=== PATIENT | male | born 1975 | race Caucasian/White ===

== ENCOUNTER 2017-10-12 08:52 | Observation (INO) | payer SELFPAY ==
[2017-10-12 09:56] LABS: Absolute Monocytes 0.4 K/uL (0.1-1.3); Absolute Neutrophil 5.8 K/uL (1.8-8.0); Basophils % 0.6 % (0-1.3); Hematocrit 47.2 % (39.6-49.0); Lymphocytes % 13.2 % (15.3-44.8); MCH 32.5 pg (27.0-35.0); MPV 10.8 fL (7.6-11.3); Monocytes % 5.2 % (3.3-12.3); RBC Red Blood Cell Count 4.81 M/uL (4.33-5.43)
[2017-10-12 09:59] LABS: Protime INR 0.92
[2017-10-12 10:13] LABS: Albumin 3.6 g/dL (3.4-5.0); Bilirubin Direct 0.2 mg/dL (0-0.2); Bilirubin Total 0.6 mg/dL (0.2-1.0); CKMB Creatine Kinase MB 1.2 ng/mL (0.3-3.6); Magnesium 1.8 mg/dL (1.8-2.4); Potassium 3.5 mmol/L (3.5-5.1); Protein, Total 7.1 g/dL (6.4-8.2)
--- NOTE | 2017-10-12 10:23 | RAD REPORT ---
EXAM DESCRIPTION: Nacho Single View10/12/2017 10:12 am CLINICAL HISTORY: Chest pain COMPARISON: 2014 FINDINGS: The lungs appear clear of acute infiltrate. The heart is normal size IMPRESSION: No acute abnormalities displayed
[2017-10-12] MEDS ORDERED: ASPIRIN EC 325 MG TABLET PO ONE (11:12)
[2017-10-12] MEDS ORDERED: ONDANSETRON 4 MG/2 ML VIAL ONE (11:12)
[2017-10-12] MEDS ORDERED: MORPHINE 4 MG/ML SYR ONE (11:12)
[2017-10-12] MEDS ORDERED: ACETAMINOPHEN 500 MG TAB PO PRN (11:36)
[2017-10-12] MEDS ORDERED: ONDANSETRON 4 MG/2 ML VIAL IV PRN (11:36)
--- NOTE | 2017-10-12 11:40 | EDPHYS ---
Physician Documentation [facility] Name: Pola Hunter Age: 42 yrs Sex: Male : 1975 Arrival Date: 10/12/2017 Time: 08:56 Bed 13 Private MD: None, None ED Physician Rambo Diaz HPI: 10/12 09:25 This 42 yrs old Male presents to ER via Ambulatory with complaints of Chest jmm Pain. 09:25 The patient or guardian reports chest pain that is located primarily in the substernal m area. Onset: gradually, last night. The pain does not radiate. Associated signs and symptoms: Pertinent positives: cough, nausea. The chest pain is described as aching, sharp. Duration: The patient or guardian reports multiple episodes, that wax and wane. Modifying factors: The symptoms are alleviated by nothing. the symptoms are aggravated by cough. This is a 42 year old male with a history of HTN presents to the ED with left sided chest pain beginning last night. The pain is described as an ache which becomes sharp when he cough. The patient attributes his cough to taking lisinopril for his blood pressure. The patient admits to occasional ETOH use and daily 1 PPD smoking. Patient denies radiation of pain. . Historical: - Allergies: 09:24 NKA; iw - Home Meds: 09:24 lisinopril-hydrochlorothiazide 10-12.5 mg oral tab 1 tab once daily [Active]; iw - PMHx: 09:24 Hypertension; iw - PSHx: 09:24 Appendectomy; iw - Immunization history:: Adult Immunizations not up to date. - Social history:: Smoking status: Patient uses tobacco products, smokes one pack cigarettes per day. - Ebola Screening: : Patient negative for fever greater than or equal to 101.5 degrees Fahrenheit, and additional compatible Ebola Virus Disease symptoms Patient denies exposure to infectious person Patient denies travel to an Ebola-affected area in the 21 days before illness onset No symptoms or risks identified at this time. ROS: 09:25 Constitutional: Negative for body aches, chills, fatigue. jmm 09:25 Cardiovascular: Positive for chest pain. 09:25 Respiratory: Positive for shortness of breath. 09:25 Abdomen/GI: Positive for nausea, Negative for vomiting, diarrhea. 09:25 Back: Negative for radiated pain. 09:25 MS/extremity: Negative for pain. 09:25 Neuro: Negative for weakness. 09:25 All other systems are negative. Exam: 09:25 Head/Face: atraumatic. [facility] 09:25 Constitutional: The patient appears in no acute distress, alert, awake. 09:25 Chest/axilla: Inspection: normal, Palpation: is normal, Axilla: 09:25 Cardiovascular: Rate: normal, Rhythm: regular. 09:25 Respiratory: the patient does not display signs of respiratory distress, Respirations: normal, Breath sounds: are clear throughout. 09:25 Abdomen/GI: Inspection: obese Bowel sounds: normal, Palpation: abdomen is soft and non-tender, in all quadrants. 09:25 Back: ROM is normal. 09:25 Musculoskeletal/extremity: ROM: intact in all extremities. 09:25 Skin: Appearance: Color: normal in color. 09:25 Neuro: Orientation: is normal, Mentation: is normal, Memory: is normal. 09:25 Psych: Behavior/mood is pleasant, cooperative. Vital Signs: 09:24 BP 168 / 109; Pulse 97; Resp 18 S; Pulse Ox 98% on R/A; Weight 117.93 kg; Height 5 ft. iw 11 in. (180.34 cm); Pain 8/10; 09:30 Temp 98.6(O); jl7 09:34 BP 152 / 105; Pulse 108; Resp 14; Pulse Ox 99% ; jl7 10:30 BP 153 / 96; Pulse 90; Resp 14; Pulse Ox 97% ; jl7 10:52 BP 163 / 97; Pulse 64; Resp 18; Pulse Ox 97% ; jl7 12:29 BP 156 / 113; Pulse 85; Resp 16; Pulse Ox 97% ; jl7 09:24 Body Mass Index 36.26 (117.93 kg, 180.34 cm) iw MDM: 09:29 Patient medically screened. dorina 11:24 The patient was given aspirin in the Emergency Department. Data reviewed: vital signs, [facility] nurses notes, lab test result(s), EKG, radiologic studies, plain films. 11:36 Physician consultation: Sakina Murillo MD. nic 11:37 ED course: Patient will be admitted for ACS rule out. I discussed this with the patient rogers whom agrees with the plan of care. 07/03 09:38 Order name: Basic Metabolic Panel; Complete Time: 10:25 [facility] 10/12 09:38 Order name: CBC with Diff; Complete Time: 10:05 [facility] 10/12 09:38 Order name: Ckmb; Complete Time: 10:25 [facility] 10/12 09:38 Order name: CPK; Complete Time: 10:25 [facility] 10/12 09:38 Order name: LFT's; Complete Time: 10:25 [facility] 10/12 09:38 Order name: Magnesium; Complete Time: 10:25 [facility] 10/12 09:38 Order name: NT PRO-BNP; Complete Time: 10:25 [facility] 10/12 09:38 Order name: PT-INR; Complete Time: 10:05 [facility] 10/12 09:38 Order name: Ptt, Activated; Complete Time: 10:05 [facility] 10/12 09:38 Order name: Troponin (emerg Dept Use Only); Complete Time: 10:25 [facility] 10/12 09:38 Order name: XRAY Chest (1 view); Complete Time: 10:25 [facility] 10/12 10:05 Order name: D-Dimer; Complete Time: 10:50 [facility] 10/12 11:39 Order name: Hemoglobin A1c [facility] 10/12 11:39 Order name: Lipid Profile [facility] 10/12 09:38 Order name: EKG; Complete Time: 09:39 [facility] 10/12 09:38 Order name: Cardiac monitoring; Complete Time: 09:42 [facility] 10/12 09:38 Order name: EKG - Nurse/Tech; Complete Time: 09:42 [facility] 10/12 09:38 Order name: IV Saline Lock; Complete Time: 09:42 [facility] 10/12 09:38 Order name: Labs collected and sent; Complete Time: 09:42 [facility] 10/12 09:38 Order name: O2 Per Protocol; Complete Time: 09:42 [facility] 10/12 09:38 Order name: O2 Sat Monitoring; Complete Time: 09:42 [facility] 10/12 10:04 Order name: EKG - Nurse/Tech; Complete Time: 10:13 [facility] 10/12 10:07 Order name: EKG; Complete Time: 10:07 [facility] 10/12 11:38 Order name: CONS Physician Consult [facility] 10/12 11:38 Order name: Heart Healthy [facility] 10/12 11:38 Order name: Echo with Doppler EDMS Administered Medications: 11:11 Drug: Aspirin 325 mg Route: PO; jl7 12:40 Follow up: Response: No adverse reaction jl7 11:12 Drug: Zofran 4 mg Route: IVP; Site: right antecubital; jl7 11:45 Follow up: Response: No adverse reaction jl7 11:14 Drug: morphine 4 mg Route: IVP; Site: right antecubital; jl7 11:45 Follow up: Response: No adverse reaction; Pain is decreased jl7 Disposition: 15:01 Co-signature as Attending Physician, Rambo Diaz MD I agree with the assessment and [facility] plan of care. Disposition: 10/12/17 11:39 Hospitalization ordered by Sakina Murillo for Observation. Preliminary diagnosis is Other chest pain. - Bed requested for Telemetry/MedSurg (observation). - Status is Observation. jl7 - Condition is Stable. - Problem is new. - Symptoms are unchanged. UTI on Admission? No Signatures: Dispatcher [employer] EDTN Rambo Diaz MD MD cha Mickail, Joel, PA PA Vani Macdonald, RN RN Alyssa Worrell Jahala RN RN jl7 Corrections: (The following items were deleted from the chart) 12:13 11:39 Hospitalization Ordered by Sakina Murillo MD for Observation. Preliminary ag diagnosis is Other chest pain. Bed requested for Telemetry/MedSurg (observation). Status is Observation. Condition is Stable. Problem is new. Symptoms are unchanged. UTI on Admission? No. [facility] 12:40 12:13 10/12/2017 11:39 Hospitalization Ordered by Sakina Murillo MD for Observation. jl7 Preliminary diagnosis is Other chest pain. Bed requested for Telemetry/MedSurg (observation). Status is Observation. Condition is Stable. Problem is new. Symptoms are unchanged. UTI on Admission? No. ag
--- NOTE | 2017-10-12 11:40 | ER ---
Nurse's Notes [facility] Name: Pola Hunter Age: 42 yrs Sex: Male : 1975 Arrival Date: 10/12/2017 Time: 08:56 Bed 13 Private MD: None, None Diagnosis: Other chest pain Presentation: 10/12 09:19 Presenting complaint: Patient states: c/o left sided chest pain since last night, pain iw radiates across chest, described as burning pain, was constant last night, now intermittent, also feels like BP is high, feels flush and having "hot flashes", takes lisinopril/hctz, but has been out of his losartan for 2 weeks. Transition of care: patient was not received from another setting of care. Onset of symptoms was October 11, 2017. Risk Assessment: Do you want to hurt yourself or someone else? Patient reports no desire to harm self or others. Initial Sepsis Screen: Does the patient meet any 2 criteria? No. Patient's initial sepsis screen is negative. Does the patient have a suspected source of infection? No. Patient's initial sepsis screen is negative. Care prior to arrival: None. 09:19 Method Of Arrival: Ambulatory iw 09:19 Acuity: STEVE 3 iw Historical: - Allergies: 09:24 NKA; iw - Home Meds: 09:24 lisinopril-hydrochlorothiazide 10-12.5 mg oral tab 1 tab once daily [Active]; iw - PMHx: 09:24 Hypertension; iw - PSHx: 09:24 Appendectomy; iw - Immunization history:: Adult Immunizations not up to date. - Social history:: Smoking status: Patient uses tobacco products, smokes one pack cigarettes per day. - Ebola Screening: : Patient negative for fever greater than or equal to 101.5 degrees Fahrenheit, and additional compatible Ebola Virus Disease symptoms Patient denies exposure to infectious person Patient denies travel to an Ebola-affected area in the 21 days before illness onset No symptoms or risks identified at this time. Screenin:34 Abuse screen: Denies threats or abuse. Denies injuries from another. Nutritional jl7 screening: No deficits noted. Tuberculosis screening: No symptoms or risk factors identified. Fall Risk IV access (20 points). Total Calderon Fall Scale indicates No Risk (0-24 pts). Assessment: 09:28 Also complains of shortness of breath. General: Appears in no apparent distress. jl7 uncomfortable, Behavior is cooperative, appropriate for age, anxious. Pain: Complains of pain in anterior aspect of left upper chest Pain radiates to anterior aspect of right upper chest Pain currently is 8 out of 10 on a pain scale. Quality of pain is described as pressure, sharp, piercing, Pain began 1 day ago. Is intermittent. Neuro: Level of Consciousness is awake, alert, obeys commands, Oriented to person, place, time, situation. Cardiovascular: Heart tones S1 S2 present Patient's skin is warm and dry. Respiratory: Reports shortness of breath at rest Airway is patent Respiratory effort is even, unlabored, Respiratory pattern is regular, symmetrical, Breath sounds are clear bilaterally. GI: No signs and/or symptoms were reported involving the gastrointestinal system. Abdomen is round non-distended, Bowel sounds present X 4 quads. Patient currently denies diarrhea, nausea, pain, vomiting. : No signs and/or symptoms were reported regarding the genitourinary system. EENT: No signs and/or symptoms were reported regarding the EENT system. Derm: Skin is pink, warm \\T\\ dry. Musculoskeletal: No signs and/or symptoms reported regarding the musculoskeletal system. 10:30 Reassessment: No changes from previously documented assessment. Patient and/or family jl7 updated on plan of care and expected duration. Pain level reassessed. Patient is alert, oriented x 3, equal unlabored respirations, skin warm/dry/pink. 11:30 Reassessment: Patient and/or family updated on plan of care and expected duration. Pain jl7 level reassessed. Patient is alert, oriented x 3, equal unlabored respirations, skin warm/dry/pink. 12:29 Reassessment: Patient is alert, oriented x 3, equal unlabored respirations, skin jl7 warm/dry/pink. Provider notified of BP, no new orders received. Patient denies pain at this time. Vital Signs: 09:24 BP 168 / 109; Pulse 97; Resp 18 S; Pulse Ox 98% on R/A; Weight 117.93 kg; Height 5 ft. iw 11 in. (180.34 cm); Pain 8/10; 09:30 Temp 98.6(O); jl7 09:34 BP 152 / 105; Pulse 108; Resp 14; Pulse Ox 99% ; jl7 10:30 BP 153 / 96; Pulse 90; Resp 14; Pulse Ox 97% ; jl7 10:52 BP 163 / 97; Pulse 64; Resp 18; Pulse Ox 97% ; jl7 12:29 BP 156 / 113; Pulse 85; Resp 16; Pulse Ox 97% ; jl7 09:24 Body Mass Index 36.26 (117.93 kg, 180.34 cm) iw ED Course: 08:56 Patient arrived in ED. mr 08:56 None, None is Private Physician. mr 09:14 Nannette Lu, JOSEPH is Primary Nurse. jl7 09:20 Darci Cardozo PA is PHCP. jmm 09:20 Rambo Diaz MD is Attending Physician. jmm 09:23 Triage completed. iw 09:24 Arm band placed on. iw 09:28 Missed attempt(s): 20 gauge in left antecubital area. Bleeding controlled, band aid jl7 applied, catheter tip intact. 09:31 Initial lab(s) drawn, by me, sent to lab. Inserted saline lock: 20 gauge in right jl7 antecubital area, using aseptic technique. Blood collected. Patient maintains SpO2 saturation greater than 95% on room air. 09:34 Patient has correct armband on for positive identification. Placed in gown. Bed in low jl7 position. Call light in reach. Side rails up X 1. surveillance system monitor on. Pulse ox on. NIBP on. 10:01 X-ray completed. Portable x-ray completed in exam room. Patient tolerated procedure ml well. 10:01 XRAY Chest (1 view) In Process Unspecified. EDMS 11:38 Mikal Murillo MD is Hospitalizing Provider. jmm 11:38 Sakina Murillo MD is Hospitalizing Provider. jmm 12:29 No provider procedures requiring assistance completed. Patient admitted, IV remains in jl7 place. intact, No redness/swelling at site. Administered Medications: 11:11 Drug: Aspirin 325 mg Route: PO; jl7 12:40 Follow up: Response: No adverse reaction jl7 11:12 Drug: Zofran 4 mg Route: IVP; Site: right antecubital; jl7 11:45 Follow up: Response: No adverse reaction jl7 11:14 Drug: morphine 4 mg Route: IVP; Site: right antecubital; jl7 11:45 Follow up: Response: No adverse reaction; Pain is decreased jl7 Outcome: 11:39 Decision to Hospitalize by Provider. rogers 12:38 Admitted to Tele accompanied by tech, via wheelchair, room 427, with chart, Report jl7 called to JOSEPH Ryan 12:38 Condition: stable 12:38 Discharge instructions given to patient, Instructed on the need for admit, Demonstrated understanding of instructions. 12:40 Patient left the ED. jl7 Signatures: Dispatcher [employer] EDMS Darci Cardozo PA PA jmm Rivera, Maria mr Vani Lyle, RN Monse Feldman Jahala, RN RN jl7 Corrections: (The following items were deleted from the chart) 09:34 09:28 BP 152 / 105; Pulse 108bpm; Resp 14bpm; Pulse Ox 99%; jl7 jl7
[2017-10-12 12:47] VITALS: O2SAT 97
[2017-10-12 13:02] VITALS: BP 151/104; TEMP 97.5
[2017-10-12 13:24] VITALS: BMI 35.8
[2017-10-12] MEDS ORDERED: POTASSIUM CL SA 10 MEQ TAB PO ONE (14:00)
[2017-10-12] MEDS ORDERED: MAGNESIUM SULFATE 1 gm IVPB 1 GM/100 ML BAG IV ONE (14:00)
--- NOTE | 2017-10-12 15:08 | ECHO ---
HEIGHT: 5 ft 11 in WEIGHT: 257 lb 0 oz DATE OF STUDY: 10/12/[address]: Sakina Murillo MD 2-DIMENSIONAL: YES M.MODE: YES DOPPLER: YES COLOR FLOW: YES TDS: YES PORTABLE: NO DEFINITY: NO BUBBLE STUDY: NO DIAGNOSIS: CHEST PAIN WITH ELEVATED BNP, RULE OUT ACS CARDIAC HISTORY: CATHERIZATION: NO SURGERY: NO PROSTHETIC VALVE: NO PACEMAKER: NO MEASUREMENTS (cm) DIASTOLIC (NORMALS) SYSTOLIC (NORMALS) IVSd 0.9 (0.6-1.2) LA Diam 3.1 (1.9-4.0) LVEF 67% LVIDd 3.5 (3.5-5.7) LVIDs 2.2 (2.0-3.5) %FS 37% LVPWd 1.0 (0.6-1.2) Ao Diam 3.3 (2.0-3.7) 2 DIMENSIONAL ASSESSMENT: RIGHT ATRIUM: NORMAL LEFT ATRIUM: NORMAL RIGHT VENTRICLE: NORMAL LEFT VENTRICLE: NORMAL TRICUSPID VALVE: NORMAL MITRAL VALVE: NORMAL PULMONIC VALVE: NORMAL AORTIC VALVE: NORMAL PERICARDIAL EFFUSION: NONE AORTIC ROOT: NORMAL LEFT VENTRICULAR WALL MOTION: NORMAL DOPPLER/COLOR FLOW: NORMAL COMMENTS: TECHNICALLY DIFFICULT STUDY. GROSSLY NORMAL LEFT VENTRICULAR EJECTION FRACTION AND SIZE. NORMAL DOPPLER. NO EFFUSION. TECHNOLOGIST: Anupam MARROQUIN
--- NOTE | 2017-10-12 15:12 | P.HP ---
Certification for Inpatient Patient admitted to: Observation With expected LOS: <2 Midnights Patient will require the following post-hospital care: None Practitioner: I am a practitioner with admitting privileges, knowledge of patient current condition, hospital course, and medical plan of care. Services: Services provided to patient in accordance with Admission requirements found in Title 42 Section 412.3 of the Code of Federal Regulations Patient History Date of Service: 10/12/17 Primary Care Provider: Hans Reason for admission: Chest pain History of Present Illness: 42 year old male with a history of HTN presents to the ED with left sided chest pain beginning last night. The pain is described as an dull ache which becomes sharp when he cough. Pain is 8/10 in nature at its worse. Nothing helps the pain. Denies having any SOB, Nausea, Vomiting, or any other symptoms at this time. The patient admits to occasional ETOH use and daily 1 PPD smoking. + Family history as well. No other complains to offer. Has been seeing doc in [place]. Allergies meperidine HCl [From Demerol] Allergy (Mild, Verified 02/24/12 08:38) Hives/Rash No Known Drug Allergies Allergy (Unverified 07/24/14 07:35) Unknown No Known Allergies Allergy (Uncoded 10/12/17 12:44) Unknown Home Medications: Lisinopril/Hydrochlorothiazide [Lisinopril-Hctz 10-12.5 mg Tab] 1 each PO BEDTIME 10/12/17 - Past Medical/Surgical History Has patient received pneumonia vaccine in the past: No Diabetic: No -: HTN -: Appendectomy - Family History Father History Unknown: Yes -: Other (see notes) Notes: alzheimers Mother -: Stroke - Social History Smoking Status: Current every day smoker Alcohol use: Yes CD- Drugs: No Caffeine use: Yes Place of Residence: Home Review of Systems General: As per HPI Physical Examination - Vital Signs Temperature: 97.5 F Blood Pressure: 151/104 Pulse: 92 Respirations: 18 Pulse Ox (%): 97 - Physical Exam General: Alert, In no apparent distress HEENT: Atraumatic, PERRLA, Mucous membr. moist/pink, EOMI, Sclerae nonicteric Neck: Supple, 2+ carotid pulse no bruit, No LAD, Without JVD or thyroid abnormality Respiratory: Clear to auscultation bilaterally, Normal air movement Cardiovascular: Regular rate/rhythm, Normal S1 S2 Gastrointestinal: Normal bowel sounds, No tenderness Musculoskeletal: No tenderness Integumentary: No rashes Neurological: Normal gait, Normal speech, Normal strength at 5/5 x4 extr, Normal tone, Normal affect Lymphatics: No axilla or inguinal lymphadenopathy - Studies Laboratory Data (last 24 hrs) 10/12/17 09:30: PT 10.9, INR 0.92, APTT 28.7 10/12/17 09:30: WBC 7.2, Hgb 15.6, Hct 47.2, Plt Count 163 10/12/17 09:30: Sodium 141, Potassium 3.5, BUN 9, Creatinine 1.20, Glucose 128 H , Magnesium 1.8, Total Bilirubin 0.6, AST 49 H, ALT 92 H, Alkaline Phosphatase 72 Assessment and Plan - Problems (Diagnosis) (1) Chest pain Current Visit: Yes Status: Acute Plan: atypical Chest pain. Troponin x 1 negative and EKG with no acute changes -Repeat Troponin x 2 -ECHO ordered -Cardiology consulted. Awaiting reccs -ACS protocol: ASA, Statin, BB Qualifiers: Chest pain type: unspecified Qualified Code(s): R07.9 - Chest pain, unspecified (2) HTN (hypertension) Current Visit: Yes Status: Chronic Plan: BP stable for now -Hold Lisinopril/HCTZ due to Cough Qualifiers: Hypertension type: essential hypertension Qualified Code(s): I10 - Essential (primary) hypertension (3) Tobacco abuse Current Visit: Yes Status: Chronic Plan: Smokes 1 pack a day -Counseled and educated Discharge Plan: Home Plan to discharge in: 24 Hours - Advance Directives Does patient have a Living Will: No Does patient have a Durable POA for Healthcare: No - Code Status/Comfort Care Code Status Assessed: Yes Critical Care: No
--- NOTE | 2017-10-12 15:35 | EKG ---
Test Date: 2017-10-12 Test Time: 10:07:29 [employer] Former Supervisor: BLANCA MEASUREMENT RESULTS: Intervals: Rate: 88 AZ: 172 QRSD: 114 QT: 376 QTc: 454 Marine: P: 50 AZ: 172 QRS: 69 T: 52 INTERPRETIVE STATEMENTS: Normal sinus rhythm with sinus arrhythmia Incomplete right bundle branch block Borderline ECG Compared to ECG 10/12/2017 09:17:40 Sinus tachycardia no longer present Electronically Signed On 10-12-17 15:33:39 CDT by Ghassan Gomes
--- NOTE | 2017-10-12 15:35 | EKG ---
Test Date: 2017-10-12 Test Time: 09:17:40 [employer] Ii Assembler: BLANCA MEASUREMENT RESULTS: Intervals: Rate: 103 MN: 174 QRSD: 114 QT: 370 QTc: 484 Colbert: P: 50 MN: 174 QRS: 61 T: 48 INTERPRETIVE STATEMENTS: Sinus tachycardia Incomplete right bundle branch block Borderline ECG Compared to ECG 09/06/2014 09:54:25 Sinus rhythm no longer present Electronically Signed On 10-12-17 15:33:48 CDT by Ghassan Gomes
[2017-10-12] MEDS ORDERED: ASPIRIN EC 81 MG TAB PO SCH (16:00)
[2017-10-12] MEDS ORDERED: ATORVASTATIN 20 MG TAB PO SCH (21:00)
[2017-10-13] MEDS ORDERED: METOPROLOL XL 25 MG TAB PO SCH (06:00)
[2017-10-13] MEDS ORDERED: PANTOPRAZOLE 40MG TABLET PO SCH (06:30)
[2017-10-13] MEDS ORDERED: ASPIRIN EC 81 MG TAB PO SCH (09:00)
[2017-10-13] MEDS ORDERED: ENOXAPARIN 40 MG/0.4 ML SQ SCH (09:00)
--- NOTE | 2017-10-13 14:28 | CON ---
Date of Consultation: 10/12/2017 Reason For Consultation: Chest pain. History Of Present Illness: Mr. Hunter is a 42-year-old white male, who has no significant past cardia c history. He has a history of hypertension, tobacco use and a positive family history of cerebrovas cular disease. He does not really see any physician. He is supposed to be on lisinopril. He used t o see Dr. Harry at one point. He basically came in with sharp, stabbing chest pain over the left sandra e with radiating to the left arm. No nausea, vomiting, diaphoresis, PND, orthopnea, pedal edema, pal pitations, or syncope. He himself believes that this may be anxiety related or musculoskeletal. By the time he was seen, he had a normal EKG, normal troponin, normal chest x-ray, normal echocardiograp hy. His laboratory evaluation was normal. Past Medical History: Includes hypertension. Social History: Positive for tobacco abuse. Family History: Positive for history of CVA and Alzheimer's. Medications: At home include lisinopril. Allergies: DEMEROL. Physical Examination: Vital Signs: Stable, afebrile. HEENT: Negative. Neck: Supple without any bruit, lymphadenopathy, JVD, or thyromegaly. Chest: Clear. Cardiac: Revealed a regular rhythm and rate without murmurs, gallops, or rubs. Abdomen: Benign. Extremities: Revealed no clubbing, cyanosis, or edema. Diagnostic Data: Negative. Impression And Plan: 1.Atypical chest pain, more likely musculoskeletal or possibly gastroesophageal reflux in nature. 2.Tobacco abuse. 3.Family history of cerebrovascular disease. The patient has ruled out his echocardiogram is normal . His enzymes are normal. I am comfortable within going home. I will make arrangements for him to have an outpatient stress test. ELVIN/SHAKIR Voice ID: [id number] Report ID: [id number]
== END 2017-10-12 17:46 | disposition home or self-care (01) ==
LOC: ER 08:52 → ERHOLD 11:36 → 4TH 12:33
PROVIDERS: ADMIT Family Medicine; ATTEND Family Medicine
DX: R07.89 Other chest pain (principal); I45.10 Unspecified right bundle-branch block; R00.1 Bradycardia, unspecified; I10 Essential (primary) hypertension; Z82.49 Family history of ischemic heart disease and other diseases of the circulatory system; F17.210 Nicotine dependence, cigarettes, uncomplicated; Z88.5 Allergy status to narcotic agent
CPT/HCPCS: 36415; 71045; 80048; 80061; 80076; 82550; 82553; 83036; 83735; 83880; 84484; 85025; 85379; 85610; 85730; 93005; 93306; 96374; 96375; 99285; G0378; J2405; J3475

== ENCOUNTER 2021-04-01 16:41 | Emergency (ER) | payer SELFPAY ==
[2021-04-01 17:37] LABS: Absolute Lymphocytes (CBC) 0.4 K/uL (0.7-4.9); Basophils % 0.6 % (0-1.3); Hematocrit 46.5 % (39.6-49.0); Lymphocytes % 4.6 % (15.3-44.8); MPV 10.3 fL (7.6-11.3); RBC Red Blood Cell Count 5.03 M/uL (4.33-5.43)
[2021-04-01 17:41] LABS: Protime INR 0.99
--- NOTE | 2021-04-01 17:56 | RAD REPORT ---
EXAM DESCRIPTION: RAD - Chest Single View - 04/01/2021 5:38 pm CLINICAL HISTORY: CHEST PAIN COMPARISON: Chest Single View dated 10/12/2017; CHEST PA AND LAT 2 VIEW dated 09/06/2014; CHEST SINGLE VIEW dated 07/16/2014; CHEST SINGLE VIEW dated 07/08/2008Chest Single View dated 10/12/2017; CHEST PA AND LAT 2 VIEW dated 09/06/2014; CHEST SINGLE VIEW dated 07/16/2014; CHEST SINGLE VIEW dated 07/08/2008 FINDINGS: Lines: None. Lungs: No evidence of edema or pneumonia. Pleural: No significant pleural effusions or pneumothorax. Cardiac: Cardiomegaly. Bones: No acute fractures. Other: IMPRESSION: No acute cardiopulmonary disease.
[2021-04-01 18:00] LABS: ALT/SGPT 52 U/L (12-78); AST/SGOT 21 U/L (15-37); Albumin 3.6 g/dL (3.4-5.0); Alkaline Phosphatase 80 U/L (45-117); BUN Blood Urea Nitrogen 12 mg/dL (7-18); Bicarbonate 24 mmol/L (21-32); Bilirubin Direct 0.1 mg/dL (0-0.2); Bilirubin Total 0.5 mg/dL (0.2-1.0); Glucose Level 108 mg/dL (74-106); Magnesium 1.7 mg/dL (1.8-2.4); NT PRO-BNP 96 pg/mL (<125); Potassium 3.6 mmol/L (3.5-5.1); Protein, Total 7.3 g/dL (6.4-8.2); Sodium Level 135 mmol/L (136-145); Troponin (Emerg Dept Use Only) < 0.02 ng/mL (0.0-0.045)
[2021-04-01] MEDS ORDERED: NA CHLORIDE 0.9% 1,000 ML ONE (18:08)
--- NOTE | 2021-04-01 19:29 | RAD REPORT ---
EXAM DESCRIPTION: CT - Chest For Pe Angio - 04/01/2021 7:07 pm CLINICAL HISTORY: CHEST PAIN COMPARISON: No comparisons FINDINGS: Chest Wall: No suspicious thyroid nodules or pathologic lymphadenopathy. Lungs: No acute abnormality. Pleura: No significant effusions or pneumothorax. Mediastinum/brandyn: No pathologic lymphadenopathy. Pulmonary arteries/Aorta: No central pulmonary embolus identified. The segmental and subsegmental pul monary arteries cannot be evaluated due to motion. No aortic aneurysm. Heart: No significant pericardial effusion. Normal heart size. Upper abdomen: Too small to characterize low-density lesion left hepatic lobe. Bones: No acute abnormality. All CT scans are performed using dose optimization technique as appropriate and may include automated exposure control or mA/KV adjustment according to patient size. IMPRESSION: No central pulmonary embolus. Evaluation of the segmental and subsegmental pulmonary art eries is limited due to motion. No other acute process identified.
--- NOTE | 2021-04-01 19:30 | RAD REPORT ---
EXAM DESCRIPTION: CT - Head Brain Wo Cont - 04/01/2021 7:06 pm CLINICAL HISTORY: headache, elevated bp COMPARISON: No comparisons TECHNIQUE: All CT scans are performed using dose optimization technique as appropriate and may inclu de automated exposure control or mA/KV adjustment according to patient size. FINDINGS: No intracranial hemorrhage, hydrocephalus or extra-axial fluid collection.No areas of brai n edema or evidence of midline shift. The paranasal sinuses and mastoids are clear. The calvarium is intact. IMPRESSION: No acute intracranial abnormality.
[2021-04-01] MEDS ORDERED: ACETAMINOPHEN 325 MG TABLET ONE (19:38)
--- NOTE | 2021-04-01 21:19 | EDPHYS ---
Physician Documentation [facility] Name: Pola Hunter Age: 45 yrs Sex: Male : 1975 Arrival Date: 04/01/2021 Time: 16:44 Bed 17 Private MD: MARY Physician Rambo Diaz HPI: 04/01 17:01 This 45 yrs old Male presents to ER via Ambulatory with complaints of High Blood jmm Pressure, Chest Pain. 17:01 The patient or guardian reports cough. Onset: The symptoms/episode began/occurred jmm gradually, 2 day(s) ago. Modifying factors: The symptoms are alleviated by nothing. the symptoms are aggravated by nothing. Associated signs and symptoms: Pertinent positives: chest pain, fever. The patient has not experienced similar symptoms in the past. Historical: - Allergies: 16:58 NKA; iw - Home Meds: 17:10 lisinopril-hydrochlorothiazide 10-12.5 mg Oral tab 1 tab once daily [Active]; dickerson - PMHx: 16:58 Hypertension; iw - PSHx: 16:58 Appendectomy; iw - Immunization history:: Client reports having NOT received the Covid vaccine. - Social history:: Smoking status: Patient reports the use of cigarette tobacco products, smokes one pack cigarettes per day. ROS: 17:01 Constitutional: Positive for body aches. jmm 17:01 Cardiovascular: Positive for chest pain, with cough, with movement. 17:01 Respiratory: Positive for shortness of breath. 17:01 Neuro: Positive for headache. 17:01 All other systems are negative. Exam: 17:01 Head/Face: atraumatic. Eyes: EOMI, no conjunctival erythema appreciated ENT: Moist jmm Mucus Membranes Neck: Trachea midline, Supple Chest/axilla: Normal chest wall appearance and motion. 17:01 Respiratory: Normal respirations, no respiratory distress appreciated Abdomen/GI: Non distended, soft Back: Normal ROM Skin: General appearance color normal MS/ Extremity: Moves all extremities, no obvious deformities appreciated, no edema noted to the lower extremities Neuro: Awake and alert, normal gait Psych: Behavior is normal, Mood is normal, Patient is cooperative and pleasant 17:01 Constitutional: The patient appears in no acute distress, alert, awake. 17:01 Cardiovascular: Rate: tachycardic, Rhythm: regular. Vital Signs: 16:55 BP 158 / 99; Pulse 126; Resp 20; Temp 99.3; Pulse Ox 98% on R/A; Weight 127.01 kg; iw Height 5 ft. 11 in. (180.34 cm); 18:03 BP 131 / 90; Pulse 103; Resp 18; Pulse Ox 98% on R/A; dickerson 19:17 BP 145 / 84; Pulse 102; Resp 19; Temp 100.4; Pulse Ox 99% on R/A; kd3 19:32 BP 145 / 84; Pulse 115; Resp 20; Temp 100.4; Pulse Ox 100% 0 lpm ; sv1 21:30 BP 142 / 89; Pulse 110; Resp 18; Temp 98; Pulse Ox 100% on R/A; kd3 16:55 Body Mass Index 39.05 (127.01 kg, 180.34 cm) iw MDM: 17:07 Patient medically screened. dorina 21:17 Data reviewed: vital signs, nurses notes. Counseling: I had a detailed discussion with nic the patient and/or guardian regarding: the historical points, exam findings, and any diagnostic results supporting the discharge/admit diagnosis, lab results, the need for outpatient follow up, to return to the emergency department if symptoms worsen or persist or if there are any questions or concerns that arise at home. ED course: Alert nontoxic in appearance in the ED. No signs of respiratory distress. Patient states he does feel better. Patient otherwise given strict return precautions. Patient understood agrees plan of care.. 04/01 17:01 Order name: Basic Metabolic Panel [facility] 04/01 17:01 Order name: CBC with Diff [facility] 04/01 17:01 Order name: LFT's [facility] 04/01 17:01 Order name: Magnesium [facility] 04/01 17:01 Order name: NT PRO-BNP; Complete Time: 18:02 [facility] 04/01 17:01 Order name: PT-INR; Complete Time: 17:42 [facility] 04/01 17: Order name: Troponin (emerg Dept Use Only); Complete Time: 18:02 [facility] 04/01 17:01 Order name: SARS-COV-2 RT PCR (Document "Date of Onset" if Symptomatic); Complete Time: [facility] 18:40 04/01 17: Order name: Basic Metabolic Panel; Complete Time: 18:02 [facility] 04/01 17:01 Order name: CBC with Automated Diff; Complete Time: 17:40 [facility] 04/01 17:01 Order name: Liver (Hepatic) Function; Complete Time: 18:02 [facility] 04/01 17:01 Order name: Magnesium; Complete Time: 18:02 [facility] 04/01 17:04 Order name: Procalcitonin; Complete Time: 18:28 [facility] 04/01 17:04 Order name: Lactate; Complete Time: 18:28 [facility] 04/01 17:01 Order name: XRAY Chest (1 view); Complete Time: 18:00 [facility] 04/01 17:01 Order name: EKG; Complete Time: 17:02 [facility] 04/01 17:01 Order name: Cardiac monitoring; Complete Time: 17:05 [facility] 04/01 17:01 Order name: EKG - Nurse/Tech; Complete Time: 17:05 [facility] 04/01 17:01 Order name: IV Saline Lock; Complete Time: 17:30 [facility] 04/01 17:01 Order name: Labs collected and sent; Complete Time: 17:30 [facility] 04/01 17:01 Order name: O2 Per Protocol; Complete Time: 17:30 [facility] 04/01 17:01 Order name: O2 Sat Monitoring; Complete Time: 17:30 [facility] 04/01 17:04 Order name: Blood Culture Adult (2) [facility] 04/01 18:03 Order name: CT Head Brain wo Cont; Complete Time: 19:34 [facility] 04/01 18:03 Order name: CT Chest For PE Angio; Complete Time: 19:29 [facility] Administered Medications: 18:10 Drug: NS 0.9% 1000 ml Route: IV; Rate: 1 bolus; Site: left antecubital; dickerson 19:43 Follow up: Rate change bolus; IV Status: Completed infusion; IV Intake: 1000ml kd3 19:43 Drug: Tylenol 650 mg Route: PO; kd3 Disposition Summary: 04/01/21 21:18 Discharge Ordered Location: Home [facility] Condition: Stable [facility] Diagnosis - Coronavirus infection, unspecified [facility] Followup: [facility] - With: Private Physician - When: 2 - 3 days - Reason: Recheck today's complaints, Continuance of care, Re-evaluation by your physician Discharge Instructions: - Discharge Summary Sheet [facility] - COVID-19 [facility] Forms: - Medication Reconciliation Form jmm - Thank You Letter jmm - Antibiotic Education jmm - Prescription Opioid Use [facility] Prescriptions: - albuterol sulfate 90 mcg/actuation Inhalation HFA aerosol inhaler - inhale 2 puff by INHALATION route every 6 hours; 1 Pump; Refills: 0, Product jmm Selection Permitted Signatures: Dispatcher [employer] EDMS Rambo Diaz MD MD cha Mickail, Joel, PA PA jmm Williams, Irene, RN RN iw Doucette, Kyli, RN RN kd3 Soco-StagerChiquis Corrections: (The following items were deleted from the chart) 17:10 16:58 Home Meds: None; supa dickerson 17:31 17:02 PROBNP+C.LAB.BRZ ordered. [facility]
--- NOTE | 2021-04-01 21:19 | ER ---
Nurse's Notes [facility] Name: Pola Hunter Age: 45 yrs Sex: Male : 1975 Arrival Date: 04/01/2021 Time: 16:44 Bed 17 Private MD: Diagnosis: Coronavirus infection, unspecified Presentation: 04/01 16:55 Chief complaint: Patient states: felt like his BP was high past couple days, feels iw pressure in head and his face gets flushed, was having some chest pain last night , pain has gotten better but still there , is not currently on BP medicine. Coronavirus screen: At this time, the client does not indicate any symptoms associated with coronavirus-19. Ebola Screen: Patient negative for fever greater than or equal to 101.5 degrees Fahrenheit, and additional compatible Ebola Virus Disease symptoms Patient denies exposure to infectious person. Patient denies travel to an Ebola-affected area in the 21 days before illness onset. No symptoms or risks identified at this time. Initial Sepsis Screen: Does the patient meet any 2 criteria? No. Patient's initial sepsis screen is negative. Does the patient have a suspected source of infection? No. Patient's initial sepsis screen is negative. Risk Assessment: Do you want to hurt yourself or someone else? Patient reports no desire to harm self or others. Onset of symptoms was March 31, 2021. 16:55 Method Of Arrival: Ambulatory iw 16:55 Acuity: STEVE 3 iw Triage Assessment: 17:10 General: Appears in no apparent distress. General: Behavior is calm, cooperative. Pain: dickerson Complains of pain in chest. Historical: - Allergies: 16:58 NKA; iw - Home Meds: 17:10 lisinopril-hydrochlorothiazide 10-12.5 mg Oral tab 1 tab once daily [Active]; dickerson - PMHx: 16:58 Hypertension; iw - PSHx: 16:58 Appendectomy; iw - Immunization history:: Client reports having NOT received the Covid vaccine. - Social history:: Smoking status: Patient reports the use of cigarette tobacco products, smokes one pack cigarettes per day. Screenin:08 Abuse screen: Denies threats or abuse. Denies injuries from another. Nutritional dickerson screening: No deficits noted. Tuberculosis screening: No symptoms or risk factors identified. Fall Risk IV access (20 points). Assessment: 17:08 Pain: Complains of pain in chest Pain does not radiate. Pain: Pain began gradually. dickerson Cardiovascular: Chest pain quality is sharp. Vital Signs: 16:55 BP 158 / 99; Pulse 126; Resp 20; Temp 99.3; Pulse Ox 98% on R/A; Weight 127.01 kg; iw Height 5 ft. 11 in. (180.34 cm); 18:03 BP 131 / 90; Pulse 103; Resp 18; Pulse Ox 98% on R/A; dickerson 19:17 BP 145 / 84; Pulse 102; Resp 19; Temp 100.4; Pulse Ox 99% on R/A; kd3 19:32 BP 145 / 84; Pulse 115; Resp 20; Temp 100.4; Pulse Ox 100% 0 lpm ; sv1 21:30 BP 142 / 89; Pulse 110; Resp 18; Temp 98; Pulse Ox 100% on R/A; kd3 16:55 Body Mass Index 39.05 (127.01 kg, 180.34 cm) iw ED Course: 16:44 Patient arrived in ED. rg4 16:57 Triage completed. iw 16:58 Arm band placed on. iw 16:59 Darci Cardozo PA is PHCP. [facility] 16:59 Rambo Diaz MD is Attending Physician. [facility] 17:01 Chiquis Ledesma is Primary Nurse. dickerson 17:05 EKG done, by ED staff, reviewed by Darci WEEKS. 3 17:08 Patient has correct armband on for positive identification. Bed in low position. dickerson surveillance monitor on. Pulse ox on. NIBP on. 17:08 No provider procedures requiring assistance completed. Inserted saline lock: 20 gauge dickerson in left antecubital area, using aseptic technique. Patient maintains SpO2 saturation greater than 95% on room air. 17:30 Blood Culture Adult (2) Sent. dickerson 17:30 Lactate Sent. dickerson 17:30 Procalcitonin Sent. dickerson 17:30 Magnesium Sent. dickerson 17:30 Liver (Hepatic) Function Sent. dickerson 17:30 CBC with Automated Diff Sent. dickerson 17:30 Basic Metabolic Panel Sent. dickerson 17:30 SARS-COV-2 RT PCR (Document "Date of Onset" if Symptomatic) Sent. dickerson 17:30 Basic Metabolic Panel Sent. dickerson 17:30 CBC with Diff Sent. dickerson 17:30 LFT's Sent. dickerson 17:30 Magnesium Sent. dickerson 17:30 PT-INR Sent. dickerson 17:30 Troponin (emerg Dept Use Only) Sent. dickerson 17:31 Inserted saline lock:. dickerson 17:38 XRAY Chest (1 view) In Process Unspecified. EDMS 19:08 CT Head Brain wo Cont In Process Unspecified. EDMS 19:08 CT Chest For PE Angio In Process Unspecified. EDMS 21:30 IV discontinued. kd3 Administered Medications: 18:10 Drug: NS 0.9% 1000 ml Route: IV; Rate: 1 bolus; Site: left antecubital; dickerson 19:43 Follow up: Rate change bolus; IV Status: Completed infusion; IV Intake: 1000ml kd3 19:43 Drug: Tylenol 650 mg Route: PO; kd3 Intake: 19:43 IV: 1000ml; Total: 1000ml. kd3 Outcome: 21:18 Discharge ordered by MD. [facility] 21:29 Discharged to home ambulatory. kd3 21:29 Condition: good 21:29 Discharge instructions given to patient, family, Instructed on discharge instructions, follow up and referral plans. Demonstrated understanding of instructions, follow-up care, Prescriptions given X 1. 21:31 Patient left the ED. kd3 Signatures: Dispatcher [employer] EDMS Darci Cardozo PA PA jmm Williams, Irene, JOSEPH RN Georgina Flores 4 Ary Gonzalez 3 Bri Ashley RN RN kd3 Jigar Katz RN RN 1 Au-StagerChiquis Corrections: (The following items were deleted from the chart) 17:10 16:58 Home Meds: None; [facility] 17:31 17:30 PROBNP+C.LAB.BRZ drawn and sent. dickerson EDMS
[2021-04-01 22:00] VITALS: O2SAT 100
[2021-04-01 22:24] VITALS: BP 142/89; TEMP 98
== END 2021-04-01 21:31 | disposition home or self-care (01) ==
LOC: ER 16:41
DX: U07.1 COVID-19 (principal); I10 Essential (primary) hypertension; F17.210 Nicotine dependence, cigarettes, uncomplicated
CPT/HCPCS: 36415; 70450; 71045; 71275; 80048; 80076; 83605; 83735; 83880; 84145; 84484; 85025; 85610; 87040; 93005; J7030; Q9967; U0003

== ENCOUNTER 2021-05-30 07:48 | Emergency (ER) | payer SELFPAY ==
[2021-05-30 08:14] LABS: RBC Red Blood Cell Count 5.51 M/uL (4.33-5.43)
[2021-05-30 08:15] LABS: Absolute Lymphocytes (CBC) 1.6 K/uL (0.7-4.9); Hematocrit 51.6 % (39.6-49.0); Lymphocytes % 21.6 % (15.3-44.8); MPV 10.3 fL (7.6-11.3)
[2021-05-30] MEDS ORDERED: ASPIRIN 81 MG CHEWABLE TABLET ONE (08:16)
[2021-05-30] MEDS ORDERED: MORPHINE 2 MG/ML SYR ONE (08:16)
[2021-05-30] MEDS ORDERED: ONDANSETRON 4 MG/2 ML VIAL ONE (08:16)
[2021-05-30 08:17] LABS: Protime INR 0.88
[2021-05-30 08:39] LABS: Albumin 3.6 g/dL (3.4-5.0); Bilirubin Direct 0.3 mg/dL (0-0.2); Bilirubin Total 1.1 mg/dL (0.2-1.0); Magnesium 1.8 mg/dL (1.8-2.4); Potassium 3.9 mmol/L (3.5-5.1); Protein, Total 7.2 g/dL (6.4-8.2); Troponin High Sensitivity 7.5 pg/mL (<58.9)
--- NOTE | 2021-05-30 09:36 | RAD REPORT ---
EXAM DESCRIPTION: RAD - Chest Single View - 05/30/2021 9:22 am CLINICAL HISTORY: CHEST PAIN COMPARISON: Chest Single View dated 04/01/2021; Chest Single View dated 10/12/2017; CHEST PA AND LAT 2 VIEW dated 09/06/2014; CHEST SINGLE VIEW dated 07/16/2014 FINDINGS: Lines: None. Lungs: No evidence of edema or pneumonia. Pleural: No significant pleural effusions or pneumothorax. Cardiac: The heart size is within normal limits. Bones: No acute fractures. Other: IMPRESSION: No acute cardiopulmonary disease.
--- NOTE | 2021-05-30 10:22 | ER ---
Nurse's Notes [facility] Name: Pola Hunter Age: 46 yrs Sex: Male : 1975 Arrival Date: 05/30/2021 Time: 07:52 Bed 14 Private MD: Diagnosis: Chest pain, unspecified;Elevated Blood Pressure Presentation: 05/30 07:55 Chief complaint: Patient states: Elevated blood pressure and shortness of breath that ww started 2 days. Sharp sternal chest pain that does not radiate. Coronavirus screen: Vaccine status: Client denies travel out of the [place] in the last 14 days. Ebola Screen: Patient denies travel to an Ebola-affected area in the 21 days before illness onset. Initial Sepsis Screen: Does the patient meet any 2 criteria? No. Patient's initial sepsis screen is negative. Does the patient have a suspected source of infection? No. Patient's initial sepsis screen is negative. Risk Assessment: Do you want to hurt yourself or someone else? Patient reports no desire to harm self or others. Onset of symptoms was May 28, 2021. 07:55 Method Of Arrival: Ambulatory ww 07:55 Acuity: STEVE 3 ww Triage Assessment: 08:00 General: Appears uncomfortable, Behavior is calm, cooperative. Pain: Complains of pain ww in xiphoid area and mid-sternal area. Neuro: Level of Consciousness is awake, alert, obeys commands, Oriented to person, place, time, situation, Moves all extremities. Gait is steady, Speech is normal. Cardiovascular: Reports chest pain, lightheadedness, Capillary refill < 3 seconds Patient's skin is warm and dry. Rhythm is regular Chest pain quality is sharp, is located in substernal area. Respiratory: Airway is patent Respiratory effort is even, unlabored, Respiratory pattern is regular, symmetrical. GI: No signs and/or symptoms were reported involving the gastrointestinal system. Abdomen is non-distended. : No signs and/or symptoms were reported regarding the genitourinary system. Derm: Skin Skin is pink, warm \T\ dry. Musculoskeletal: No signs and/or symptoms reported regarding the musculoskeletal system. Circulation, motion, and sensation intact. Historical: - Allergies: 08:02 NKA; ap3 - Home Meds: 08:07 None [Active]; ww - PMHx: 08:02 Hypertension; ap3 - PSHx: 08:02 Appendectomy; ap3 - Immunization history:: Client reports having NOT received the Covid vaccine. - Social history:: Smoking status: Patient reports the use of cigarette tobacco products, smokes one-half pack cigarettes per day. Screenin:03 Abuse screen: Denies threats or abuse. Nutritional screening: No deficits noted. ap3 Tuberculosis screening: No symptoms or risk factors identified. Fall Risk None identified. Assessment: 08:55 Reassessment: Patient appears in no apparent distress at this time. No changes from ww previously documented assessment. Patient and/or family updated on plan of care and expected duration. Pain level reassessed. Patient states feeling better. 09:27 Reassessment: Patient appears in no apparent distress at this time. No changes from ww previously documented assessment. Patient and/or family updated on plan of care and expected duration. Pain level reassessed. 10:38 Pain: Pain does not radiate. Pain began 2-3 days ago. ww Vital Signs: 07:55 BP 159 / 109; Pulse 98; Resp 16; Temp 98.3; Pulse Ox 98% on R/A; Weight 124.74 kg; ww Height 5 ft. 11 in. (180.34 cm); Pain 5/10; 08:55 BP 151 / 98; Pulse 86; Resp 17; Pulse Ox 99% on R/A; ww 09:28 BP 156 / 99; Pulse 90; Resp 17; Pulse Ox 98% on R/A; ww 10:31 BP 160 / 75; Pulse 85; Resp 16; Pulse Ox 95% on R/A; ww 07:55 Body Mass Index 38.35 (124.74 kg, 180.34 cm) ED Course: 07:52 Patient arrived in ED. mr 07:55 Darci Cardozo PA is PHCP. [facility] 07:55 Hal Lagunas MD is Attending Physician. [facility] 08:00 Arm band placed on right wrist. ww 08:01 EKG done, by ED staff, reviewed by Darci WEEKS. Inserted saline lock: 20 gauge in ap3 right antecubital area, using aseptic technique. Blood collected. 08:03 Patient has correct armband on for positive identification. Placed in gown. Bed in low ap3 position. Call light in reach. Side rails up X 1. alarm security or surveillance monitor on. Pulse ox on. NIBP on. Door closed. Noise minimized. 08:06 Triage completed. ww 08:09 Ariela De Los Santos, RN is Primary Nurse. ww 08:11 Patient maintains SpO2 saturation greater than 95% on room air. ww 08:12 Basic Metabolic Panel Sent. ww 08:12 CBC with Diff Sent. ww 09:22 XRAY Chest (1 view) In Process Unspecified. EDMS 10:38 No provider procedures requiring assistance completed. intact, bleeding controlled, No ww redness/swelling at site. Pressure dressing applied. Administered Medications: 08:20 Drug: Aspirin Chewable Tablet 324 mg Route: PO; ww 08:22 Drug: morphine 2 mg Route: IVP; Site: right antecubital; ww 08:24 Drug: Zofran (Ondansetron) 4 mg Route: IVP; Site: right antecubital; ww Outcome: 10:21 Discharge ordered by MD. [facility] 10:38 Discharged to home ambulatory. ww 10:38 Condition: stable 10:38 Discharge instructions given to patient, Instructed on discharge instructions, follow up and referral plans. medication usage, safety practices, Demonstrated understanding of instructions, follow-up care, medications, Prescriptions given X 1. 10:39 Patient left the ED. ww Signatures: Dispatcher [employer] EDMS Darci Cardozo PA PA jmm AldenMalina Gwendolyn Sanchez, RN RN ap3 Ariela De Los Santos, RN RN ww Corrections: (The following items were deleted from the chart) 08:07 08:02 Home Meds: lisinopril-hydrochlorothiazide 10-12.5 mg Oral tab 1 tab once daily; ww ap3
--- NOTE | 2021-05-30 10:22 | EDPHYS ---
Physician Documentation [facility] Name: Pola Hunter Age: 46 yrs Sex: Male : 1975 Arrival Date: 05/30/2021 Time: 07:52 Bed 14 Private MD: ED Physician Hal Lagunas HPI: 05/30 08:01 This 46 yrs old Male presents to ER via Ambulatory with complaints of High Blood [facility] Pressure, Chest Pain, Shortness Of Breath, Headache. 08:01 The patient or guardian reports chest pain that is located primarily in the substernal [facility] area. Onset: 2 day(s) ago. The patient has elevated blood pressure and discovered this at home. Onset: The symptoms/episode began/occurred 2 day(s) ago. Modifying factors: The symptoms are aggravated by. The pain does not radiate. This is a 46 year old male with a history of htn that presents to the ED with complaints of sternal chest pain beginning yesterday morning and has not resolved since. Patient does smoke cigarretes and states he has not been taking his prescribed medications due to adverse reactions. . Historical: - Allergies: 08:02 NKA; ap3 - Home Meds: 08:07 None [Active]; ww - PMHx: 08:02 Hypertension; ap3 - PSHx: 08:02 Appendectomy; ap3 - Immunization history:: Client reports having NOT received the Covid vaccine. - Social history:: Smoking status: Patient reports the use of cigarette tobacco products, smokes one-half pack cigarettes per day. ROS: 08:01 Constitutional: Negative for fever, chills, and weight loss, Respiratory: Negative for jmm shortness of breath, cough, wheezing, and pleuritic chest pain. 08:01 Cardiovascular: Positive for chest pain. 08:01 All other systems are negative. Exam: 08:01 Constitutional: This is a well developed, well nourished patient who is awake, alert, jmm and in no acute distress. Head/Face: atraumatic. Eyes: EOMI, no conjunctival erythema appreciated ENT: Moist Mucus Membranes Neck: Trachea midline, Supple Chest/axilla: Normal chest wall appearance and motion. Cardiovascular: Regular rate and rhythm. No edema appreciated Respiratory: Normal respirations, no respiratory distress appreciated Abdomen/GI: Non distended, soft Back: Normal ROM Skin: General appearance color normal MS/ Extremity: Moves all extremities, no obvious deformities appreciated, no edema noted to the lower extremities Neuro: Awake and alert Psych: Behavior is normal, Mood is normal, Patient is cooperative and pleasant 08:07 ECG was reviewed by the Attending Physician. rn Vital Signs: 07:55 BP 159 / 109; Pulse 98; Resp 16; Temp 98.3; Pulse Ox 98% on R/A; Weight 124.74 kg; ww Height 5 ft. 11 in. (180.34 cm); Pain 5/10; 08:55 BP 151 / 98; Pulse 86; Resp 17; Pulse Ox 99% on R/A; ww 09:28 BP 156 / 99; Pulse 90; Resp 17; Pulse Ox 98% on R/A; ww 10:31 BP 160 / 75; Pulse 85; Resp 16; Pulse Ox 95% on R/A; ww 07:55 Body Mass Index 38.35 (124.74 kg, 180.34 cm) ww MDM: 08:01 Patient medically screened. [facility] 10:14 Data reviewed: vital signs, nurses notes. Counseling: I had a detailed discussion with rogers the patient and/or guardian regarding: the historical points, exam findings, and any diagnostic results supporting the discharge/admit diagnosis, lab results, radiology results, the need for outpatient follow up, to return to the emergency department if symptoms worsen or persist or if there are any questions or concerns that arise at home. 05/30 08:01 Order name: Basic Metabolic Panel [facility] 05/30 08:01 Order name: CBC with Diff [facility] 05/30 08:01 Order name: LFT's; Complete Time: 08:40 [facility] 05/30 08:01 Order name: Magnesium; Complete Time: 08:40 [facility] 05/30 08:01 Order name: NT PRO-BNP; Complete Time: 08:40 [facility] 05/30 08:01 Order name: PT-INR; Complete Time: 08:19 [facility] 05/30 08:01 Order name: Troponin HS; Complete Time: 08:40 [facility] 05/30 08:01 Order name: XRAY Chest (1 view); Complete Time: 09:43 [facility] 05/30 08:02 Order name: Basic Metabolic Panel; Complete Time: 08:40 [facility] 05/30 08:02 Order name: CBC with Automated Diff; Complete Time: 08:19 [facility] 05/30 08:02 Order name: D-Dimer; Complete Time: 08:30 [facility] 05/30 09:36 Order name: Troponin High Sensitivity; Complete Time: 10:14 [facility] 05/30 08:01 Order name: EKG; Complete Time: 08:02 [facility] 05/30 08:01 Order name: Cardiac monitoring; Complete Time: 08:04 [facility] 05/30 08:01 Order name: EKG - Nurse/Tech; Complete Time: 08:04 [facility] 05/30 08:01 Order name: IV Saline Lock; Complete Time: 08:04 [facility] 05/30 08:01 Order name: Labs collected and sent; Complete Time: 08:04 [facility] 05/30 08:01 Order name: O2 Per Protocol; Complete Time: 08:04 [facility] 05/30 08:01 Order name: O2 Sat Monitoring; Complete Time: 08:04 [facility] EC:07 Rate is 86 beats/min. Rhythm is regular. QRS [place] is Normal. [place] interval is normal. QRS rn interval is normal. QT interval is normal. No Q waves. T waves are Normal. No ST changes noted. Clinical impression: NSR w/ Non-specific ST/T Changes. Interpreted by me. Reviewed by me. Administered Medications: 08:20 Drug: Aspirin Chewable Tablet 324 mg Route: PO; ww 08:22 Drug: morphine 2 mg Route: IVP; Site: right antecubital; ww 08:24 Drug: Zofran (Ondansetron) 4 mg Route: IVP; Site: right antecubital; ww Disposition: 11:30 Co-signature as Attending Physician, aHl Lagunas MD. rn Disposition Summary: 05/30/21 10:21 Discharge Ordered Location: Home jmm Condition: Stable jmm Diagnosis - Chest pain, unspecified jmm - Elevated Blood Pressure jmm Followup: jmm - With: Private Physician - When: 2 - 3 days - Reason: Recheck today's complaints, Continuance of care, Re-evaluation by your physician Discharge Instructions: - Discharge Summary Sheet jmm - Nonspecific Chest Pain, Adult jmm - Hypertension, Adult jmm - Form - Return To Work ww Forms: - Medication Reconciliation Form jmm - Thank You Letter jmm - Antibiotic Education jmm - Prescription Opioid Use jmm - Work release form ww Prescriptions: - Lisinopril 2.5 mg Oral Tablet - take 1 tablet by ORAL route once daily; 20 tablet; Refills: 0, Product jmvenu Selection Permitted Signatures: Dispatcher [employer] Darci Sandoval PA PA jmm Nieto, Roman, MD MD rn Prokisch, Amanda, RN RN ap3 Ariela De Los Santos RN RN ww Corrections: (The following items were deleted from the chart) 08:07 08:02 Home Meds: lisinopril-hydrochlorothiazide 10-12.5 mg Oral tab 1 tab once daily; ww ap3
[2021-05-30 10:46] VITALS: TEMP 98.3
[2021-05-30 10:50] VITALS: BP 160/75; O2SAT 95
--- NOTE | 2021-05-31 18:19 | EKG ---
Test Date: 2021-05-30 Test Time: 07:56:24 Hardboard Panel Printer: LAURENCE MEASUREMENT RESULTS: Intervals: Rate: 86 AK: 166 QRSD: 120 QT: 384 QTc: 459 [place]: P: 59 AK: 166 QRS: 78 T: 61 INTERPRETIVE STATEMENTS: Normal sinus rhythm Right bundle branch block Abnormal ECG Compared to ECG 04/01/2021 17:00:53 Sinus tachycardia no longer present Electronically Signed On 05-31-21 18:17:39 MANAGER CORPORATE by Ghassan Gomes
== END 2021-05-30 10:39 | disposition home or self-care (01) ==
LOC: ER 07:48
DX: R07.9 Chest pain, unspecified (principal); I10 Essential (primary) hypertension; F17.210 Nicotine dependence, cigarettes, uncomplicated
CPT/HCPCS: 36415; 71045; 80048; 80076; 83735; 83880; 84484; 85025; 85379; 85610; 93005; 96374; 96375; 99285; J2270; J2405

== ENCOUNTER 2021-07-11 13:43 | Emergency (ER) | payer OTHER, SELFPAY ==
[2021-07-11 14:30] LABS: Absolute Lymphocytes (CBC) 1.2 K/uL (0.7-4.9); Hematocrit 48.8 % (39.6-49.0); Lymphocytes % 14.2 % (15.3-44.8); MPV 10.7 fL (7.6-11.3); RBC Red Blood Cell Count 5.19 M/uL (4.33-5.43)
[2021-07-11] MEDS ORDERED: lisinopriL 5 MG TAB ONE (14:37)
[2021-07-11] MEDS ORDERED: ACETAMINOPHEN 500 MG TAB ONE (15:18)
[2021-07-11 15:21] LABS: Potassium 3.8 mmol/L (3.5-5.1); Troponin High Sensitivity 6.4 pg/mL (<58.9)
[2021-07-11 15:46] LABS: SARS-COV-2 RT PCR NEGATIVE (NEGATIVE)
--- NOTE | 2021-07-11 16:58 | RAD REPORT ---
EXAM DESCRIPTION: CT - Chest For Pe Angio - 07/11/2021 4:37 pm CLINICAL HISTORY: Chest pain;Dyspnea COMPARISON: Chest For Pe Angio dated 04/01/2021; Chest Single View dated 07/11/2021 TECHNIQUE: Dynamically enhanced 3 mm thick images of the chest were obtained during administration o f approximately 150mL Isovue 370 IV contrast. Coronal and oblique MIP reconstruction images were gene rated and reviewed. Exam utilizes a protocol to evaluate the pulmonary arterial tree. All CT scans are performed using dose optimization technique as appropriate and may include automated exposure control or mA/KV adjustment according to patient size. FINDINGS: No pulmonary emboli are identified. The aorta as imaged shows no acute or suspicious finding. No cardiomegaly or pericardial thickening. Left ventricular myocardium appears thickened with narrowing of the aortic outflow tract. CT sensitiv ity is limited and follow-up echocardiography could be performed as an outpatient. No peripheral consolidation, mass or airspace opacification. Patient has a subpleural 4 mm noncalcifi ed pulmonary nodule in the posterolateral right lower lobe (image 101/160). The patient is considered low risk there is no recommendation for a nodule of this size (Fleischner Society 2017 criteria). Mi ld bronchial wall thickening is seen throughout multiple lobes. Bronchitis/viral infiltrate would be possible if there are supporting clinical findings. Reactive airway disease changes are possible. No pleural effusion or pleural thickening. No mediastinal or hilar suspicious masses. No chest wall masses or abnormal axillary lymphadenopathy. IMPRESSION: No pulmonary emboli identified. Left ventricular myocardial hypertrophy and narrowed aortic outflow tract suspected.CT sensitivity is limited. Follow-up outpatient echocardiography may be helpful for further assessment. Multi lobe bronchial wall thickening that may reflect bronchitis/viral infiltrate or possibly reactiv e airway change. A solitary 4 mm right lower lobe nodule is present. There is no follow-up recommendation if the patie nt is considered low risk.
--- NOTE | 2021-07-11 17:21 | ER ---
Nurse's Notes [facility] Name: Pola Hunter Age: 46 yrs Sex: Male : 1975 Arrival Date: 07/11/2021 Time: 13:[address] Private MD: Tien Vallejo T Diagnosis: Chest pain, unspecified;Essential (primary) hypertension Presentation: 07/11 13:55 Chief complaint: Patient states: "Yesterday I started having chest pain and SOB. Today ab2 it has gotten worse and I now have a headache.". Coronavirus screen: Vaccine status: Patient reports being unvaccinated. Client denies travel out of the [place] in the last 14 days. At this time, the client does not indicate any symptoms associated with coronavirus-19. Ebola Screen: Patient negative for fever greater than or equal to 101.5 degrees Fahrenheit, and additional compatible Ebola Virus Disease symptoms Patient denies exposure to infectious person. Patient denies travel to an Ebola-affected area in the 21 days before illness onset. No symptoms or risks identified at this time. Initial Sepsis Screen: Does the patient meet any 2 criteria? No. Patient's initial sepsis screen is negative. Does the patient have a suspected source of infection? No. Patient's initial sepsis screen is negative. Risk Assessment: Do you want to hurt yourself or someone else? Patient reports no desire to harm self or others. Onset of symptoms is unknown. 13:55 Method Of Arrival: Ambulatory ab2 13:55 Acuity: STEVE 3 ab2 Triage Assessment: 13:56 General: Appears in no apparent distress. uncomfortable, Behavior is calm, cooperative, ab2 appropriate for age. Pain: Complains of pain in head and chest. Neuro: Level of Consciousness is awake, alert, obeys commands, Oriented to person, place, time, situation, Appropriate for age Reports headache. Cardiovascular: Reports chest pain, shortness of breath, Heart tones S1 S2 present Rhythm is sinus tachycardia. Respiratory: Airway is patent Respiratory effort is even, unlabored, Respiratory pattern is regular, symmetrical. GI: No deficits noted. No signs and/or symptoms were reported involving the gastrointestinal system. Historical: - Allergies: 13:56 NKA; ab2 - PMHx: 13:56 Hypertension; ab2 - PSHx: 13:56 Appendectomy; ab2 - Immunization history:: Adult Immunizations up to date. - Social history:: Smoking status: Patient reports the use of cigarette tobacco products, smokes one pack cigarettes per day. Screenin:15 Abuse screen: Denies threats or abuse. Denies injuries from another. Nutritional jl7 screening: No deficits noted. Tuberculosis screening: No symptoms or risk factors identified. Fall Risk IV access (20 points). Total Calderon Fall Scale indicates No Risk (0-24 pts). Assessment: 14:00 General: Appears in no apparent distress. uncomfortable, Behavior is calm, cooperative, jl7 appropriate for age. Pain: Complains of pain in left side of chest Pain radiates to right side of chest Pain currently is 1 out of 10 on a pain scale. at worst was 5 out of 10 on a pain scale. Quality of pain is described as sharp, Pain began 1 day ago. Is intermittent. Pain: Complains of pain in left frontal area. Neuro: Level of Consciousness is awake, alert, obeys commands, Oriented to person, place, time, situation. Cardiovascular: Heart tones present Patient's skin is warm and dry. Rhythm is regular. Respiratory: Airway is patent Respiratory effort is even, unlabored, Respiratory pattern is regular, symmetrical, Breath sounds are clear bilaterally. Derm: Skin is dry, Skin is flushed, Skin temperature is warm. 14:41 Reassessment: Pt reports he hasn't taken his 2.5 mg lisinopril in 2-3 weeks, ERP jl7 notified of BP, VO to administer pt's usual dose of lisinopril. Pt medicated as ordered. 15:17 Reassessment: Pt reports continued BHATTI rated 7/10 at this time, ERP notified VO for 1000 jl7 mg Tylenol, pt medicated as ordered. 15:49 Reassessment: Pt reports BHATTI is getting better, rated 2/10 at this time. jl7 Vital Signs: 13:55 BP 158 / 99; Pulse 102; Resp 19; Temp 98.1(TE); Pulse Ox 98% on R/A; Weight 127.01 kg; ab2 Height 5 ft. 11 in. (180.34 cm); Pain 5/10; 14:15 BP 171 / 108; Pulse 97; Resp 15; Pulse Ox 99% ; Pain 1/10; jl7 15:11 BP 139 / 110; Pulse 94; Resp 15; Pulse Ox 99% ; jl7 15:47 BP 139 / 90; Pulse 79; Resp 15; Pulse Ox 97% ; jl7 16:15 BP 136 / 101; Pulse 82; Resp 15; Pulse Ox 98% ; jl7 13:55 Body Mass Index 39.05 (127.01 kg, 180.34 cm) ab2 ED Course: 13:50 Patient arrived in ED. am2 13:50 Tien Vallejo MD is Private Physician. am2 13:56 Triage completed. ab2 13:57 Arm band placed on right wrist. ab2 13:59 Vicki Gonzalez FNP-C is PHCP. kb 13:59 Hal Lagunas MD is Attending Physician. kb 14:02 Nannette Lu RN is Primary Nurse. jl7 14:15 Patient has correct armband on for positive identification. Placed in gown. Bed in low jl7 position. Call light in reach. Side rails up X 1. ekg monitor tech on. Pulse ox on. NIBP on. 14:15 Initial lab(s) drawn, by me, sent to lab. Inserted saline lock: 20 gauge in right dh3 antecubital area, using aseptic technique. Blood collected. 14:15 Patient maintains SpO2 saturation greater than 95% on room air. jl7 15:56 XRAY Chest (1 view) In Process Unspecified. EDMS 16:28 CT Chest For PE Angio In Process Unspecified. EDMS 17:28 No provider procedures requiring assistance completed. IV discontinued, intact, jl7 bleeding controlled, No redness/swelling at site. Pressure dressing applied. Administered Medications: 14:35 Drug: Lisinopril 2.5 mg Route: PO; jl7 15:18 Follow up: Response: No adverse reaction; Blood pressure is lowered jl7 15:18 Drug: Tylenol 1000 mg Route: PO; jl7 16:00 Follow up: Response: No adverse reaction; Pain is decreased jl7 Outcome: 17:21 Discharge ordered by . kb 17:29 Discharged to home ambulatory. jl7 17:29 Condition: stable 17:29 Discharge instructions given to patient, Instructed on discharge instructions, follow up and referral plans. medication usage, Demonstrated understanding of instructions, follow-up care, medications, Prescriptions given X 1. 17:29 Patient left the ED. jl7 Signatures: Dispatcher KalibrrHoLontra EDVicki Varma, NETWORK OPERATIONS TECHNICIAN-C NETWORK OPERATIONS TECHNICIAN-Ckb Nannette Lu, RN RN jl7 Gwendolyn Gonzalez am2 Ary Gonzalez 3 Buddy Prado2 Corrections: (The following items were deleted from the chart) 15:51 15:17 Reassessment: Pt reports continued BHATTI, ERP notified VO for 1000 mg Tylenol, pt jl7 medicated as ordered jl7
--- NOTE | 2021-07-11 17:21 | EDPHYS ---
Physician Documentation [facility] Name: Pola Hunter Age: 46 yrs Sex: Male : 1975 Arrival Date: 07/11/2021 Time: 13:[address] Private MD: Tien Vallejo T ED Physician Hal Lagunas HPI: 07/11 15:58 This 46 yrs old Male presents to ER via Ambulatory with complaints of Chest Pain, kb Headache. 15:58 The patient or guardian reports chest pain that is located primarily in the anterior kb chest wall, bilaterally. Onset: yesterday. The pain does not radiate. Associated signs and symptoms: Pertinent positives: headache, shortness of breath. The chest pain is described as aching. Duration: The patient or guardian reports a single episode, that is still ongoing. Modifying factors: The symptoms are alleviated by nothing. the symptoms are aggravated by nothing. Severity of pain: At its worst the pain was mild moderate in the emergency department the pain is unchanged. The patient has not experienced similar symptoms in the past. The patient has not recently seen a physician. Historical: - Allergies: 13:56 NKA; ab2 - PMHx: 13:56 Hypertension; ab2 - PSHx: 13:56 Appendectomy; ab2 - Immunization history:: Adult Immunizations up to date. - Social history:: Smoking status: Patient reports the use of cigarette tobacco products, smokes one pack cigarettes per day. ROS: 15:57 Constitutional: Negative for fever, chills, and weight loss. kb 15:57 Cardiovascular: Positive for chest pain, Negative for edema, orthopnea, palpitations, paroxysmal nocturnal dyspnea. 15:57 Respiratory: Positive for shortness of breath, Negative for cough, dyspnea on exertion, hemoptysis, orthopnea, pleurisy, sputum production, wheezing. 15:57 Neuro: Positive for headache. 15:57 All other systems are negative. Exam: 15:58 Constitutional: This is a well developed, well nourished patient who is awake, alert, kb and in no acute distress. Head/Face: Normocephalic, atraumatic. ENT: Moist Mucous membranes Cardiovascular: Regular rate and rhythm with a normal S1 and S2. No gallops, murmurs, or rubs. No pulse deficits. Respiratory: Respirations even and unlabored. No increased work of breathing. Talking in full sentences Skin: Warm, dry with normal turgor. Normal color. MS/ Extremity: Pulses equal, no cyanosis. Neurovascular intact. Full, normal range of motion. Neuro: Awake and alert, GCS 15, oriented to person, place, time, and situation. Moves all extremities. Normal gait. Psych: Awake, alert, with orientation to person, place and time. Behavior, mood, and affect are within normal limits. 15:59 ECG was reviewed by the Attending Physician. kb Vital Signs: 13:55 BP 158 / 99; Pulse 102; Resp 19; Temp 98.1(TE); Pulse Ox 98% on R/A; Weight 127.01 kg; ab2 Height 5 ft. 11 in. (180.34 cm); Pain 5/10; 14:15 BP 171 / 108; Pulse 97; Resp 15; Pulse Ox 99% ; Pain 1/10; jl7 15:11 BP 139 / 110; Pulse 94; Resp 15; Pulse Ox 99% ; jl7 15:47 BP 139 / 90; Pulse 79; Resp 15; Pulse Ox 97% ; jl7 16:15 BP 136 / 101; Pulse 82; Resp 15; Pulse Ox 98% ; jl7 13:55 Body Mass Index 39.05 (127.01 kg, 180.34 cm) ab2 MDM: 13:59 Patient medically screened. kb 15:56 Data reviewed: vital signs, nurses notes. Data interpreted: Pulse oximetry: on room air kb is 97 %. Interpretation: normal. Counseling: I had a detailed discussion with the patient and/or guardian regarding: the historical points, exam findings, and any diagnostic results supporting the discharge/admit diagnosis, lab results, radiology results, the need for outpatient follow up, a family practitioner, to return to the emergency department if symptoms worsen or persist or if there are any questions or concerns that arise at home. 17:08 ED course: Printed out all results and discussed findings with patient, including kb nodule and need for echo. Pt will follow up with cardiology. 07/11 14:07 Order name: Basic Metabolic Panel; Complete Time: 15:21 kb 07/11 14:07 Order name: CBC with Diff; Complete Time: 14:31 kb 07/11 14:07 Order name: Troponin HS; Complete Time: 15:21 kb 07/11 14:07 Order name: XRAY Chest (1 view) kb 07/11 14:15 Order name: COVID-19/FLU A+B (Document "Date of Onset" if Symptomatic); Complete Time: kb 15:49 07/11 16:02 Order name: CT Chest For PE Angio; Complete Time: 17:02 kb 07/11 13:57 Order name: EKG - Nurse/Tech; Complete Time: 13:57 ab2 07/11 14:07 Order name: EKG; Complete Time: 14:08 kb 07/11 14:07 Order name: Cardiac monitoring; Complete Time: 14:19 kb 07/11 14:07 Order name: IV Saline Lock; Complete Time: 14:19 kb 07/11 14:07 Order name: Labs collected and sent; Complete Time: 14:19 kb 07/11 14:07 Order name: O2 Per Protocol; Complete Time: 14:19 kb 07/11 14:07 Order name: O2 Sat Monitoring; Complete Time: 14:19 kb Administered Medications: 14:35 Drug: Lisinopril 2.5 mg Route: PO; jl7 15:18 Follow up: Response: No adverse reaction; Blood pressure is lowered jl7 15:18 Drug: Tylenol 1000 mg Route: PO; jl7 16:00 Follow up: Response: No adverse reaction; Pain is decreased jl7 Disposition: 07/12 08:58 Co-signature as Attending Physician, Hal Lagunas MD. rn Disposition Summary: 07/11/21 17:21 Discharge Ordered Location: Home kb Condition: Stable kb Diagnosis - Chest pain, unspecified kb - Essential (primary) hypertension kb Followup: kb - With: Private Physician - When: 2 - 3 days - Reason: Recheck today's complaints, Continuance of care, Re-evaluation by your physician Followup: kb - With: Emergency Department - When: As needed - Reason: Worsening of condition Discharge Instructions: - Discharge Summary Sheet kb - Nonspecific Chest Pain, Adult, [id number] kb - Hypertension, Adult, [id number] kb Forms: - Medication Reconciliation Form kb - Thank You Letter kb - Antibiotic Education kb - Prescription Opioid Use kb Prescriptions: - Lisinopril 2.5 mg Oral Tablet - take 1 tablet by ORAL route once daily; 20 tablet; Refills: 0, Product kb Selection Permitted Signatures: Dispatcher [employer] Vicki Stewart FNP-C GWENDOLYN-Ckb Hal Lagunas MD MD rn Lu, JOSEPH Brunson RN jl7 Buddy Prado
--- NOTE | 2021-07-11 17:34 | RAD REPORT ---
EXAM DESCRIPTION: RAD - Chest Single View - 07/11/2021 3:55 pm CLINICAL HISTORY: CHEST PAIN COMPARISON: Portable 05/30/2021 TECHNIQUE: AP portable chest image was obtained 07/11/2021 3:55 pm . FINDINGS: No peripheral mass or consolidation. Interstitial pattern matches comparison. Heart and va sculature are normal. No measurable pleural effusion and no pneumothorax. No acute bony abnormality s een. No acute aortic findings suspected. IMPRESSION: No acute cardiopulmonary process. No significant change from comparison study.
[2021-07-11 17:55] VITALS: TEMP 98.1
[2021-07-11 18:06] VITALS: BP 136/101; O2SAT 98
--- NOTE | 2021-07-14 11:20 | EKG ---
Test Date: 2021-07-11 Test Time: 13:48:55 Equipment Service Associate: MEASUREMENT RESULTS: Intervals: Rate: 105 PA: 158 QRSD: 114 QT: 362 QTc: 478 [place]: P: 68 PA: 158 QRS: 94 T: 63 INTERPRETIVE STATEMENTS: Sinus tachycardia Rightward axis Incomplete right bundle branch block Borderline ECG Compared to ECG 05/30/2021 07:56:24 Right-axis deviation now present Incomplete right bundle-branch block now present Sinus rhythm no longer present Right bundle-branch block no longer present Electronically Signed On 07-14-21 11:13:31 CDT by Ghassan Gomes
== END 2021-07-11 17:29 | disposition home or self-care (01) ==
LOC: ER 13:43
DX: I10 Essential (primary) hypertension (principal); R51.9 Headache, unspecified; F17.210 Nicotine dependence, cigarettes, uncomplicated; Z20.822 Contact with and (suspected) exposure to COVID-19
CPT/HCPCS: 93005; 85025; 80048; 36415; 84484; 0240U; 71275; 71045; 99285; Q9967

== ENCOUNTER 2021-12-03 13:23 | Emergency (ER) | payer OTHER, SELFPAY ==
[2021-12-03 14:33] LABS: Absolute Lymphocytes (CBC) 1.4 K/uL (0.7-4.9); Hematocrit 42.6 % (39.6-49.0); Lymphocytes % 19.3 % (15.3-44.8); MCV 93.9 fL (80-100); MPV 10.6 fL (7.6-11.3); RBC Red Blood Cell Count 4.53 M/uL (4.33-5.43)
[2021-12-03 14:50] LABS: Potassium 3.8 mmol/L (3.5-5.1); Troponin High Sensitivity 6.6 pg/mL (<58.9)
--- NOTE | 2021-12-03 15:19 | RAD REPORT ---
EXAM DESCRIPTION: RAD - Chest Single View - 12/03/2021 3:13 pm CLINICAL HISTORY: CHEST PAIN COMPARISON: Chest Single View dated 07/11/2021; Chest Single View dated 05/30/2021; Chest Single View d ated 04/01/2021; Chest Single View dated 10/12/2017 FINDINGS: Lines: None. Lungs: No evidence of edema or pneumonia. Pleural: No significant pleural effusions or pneumothorax. Cardiac: The heart size is within normal limits. Bones: No acute fractures. Other: IMPRESSION: No acute cardiopulmonary disease.
--- NOTE | 2021-12-03 16:02 | ER ---
Nurse's Notes [facility] Name: Pola Hunter Age: 46 yrs Sex: Male : 1975 Arrival Date: 12/03/2021 Time: 13:24 Bed 9 Private MD: Tien Vallejo T Diagnosis: Chest pain, unspecified Presentation: 12/03 13:33 Chief complaint: Patient states: he started having chest pain last night, and this ap3 morning he continued having chest pain but with shortness of breath too. Coronavirus screen: Client presents with at least one sign or symptom that may indicate coronavirus-19. Ebola Screen: No symptoms or risks identified at this time. Initial Sepsis Screen: Does the patient meet any 2 criteria? No. Patient's initial sepsis screen is negative. Does the patient have a suspected source of infection? No. Patient's initial sepsis screen is negative. Risk Assessment: Do you want to hurt yourself or someone else? Patient reports no desire to harm self or others. Onset of symptoms was December 02, 2021. 13:33 Method Of Arrival: Ambulatory ap3 13:33 Acuity: STEVE 2 ap3 Triage Assessment: 13:36 General: Appears in no apparent distress. Behavior is calm, cooperative. Pain: ap3 Complains of pain in mid-sternal area Pain currently is 5 out of 10 on a pain scale. at worst was 7 out of 10 on a pain scale. Pain began gradually, 1 day ago. Neuro: Level of Consciousness is awake, alert, obeys commands, Oriented to person, place, time, situation, Gait is steady, Speech is normal. Cardiovascular: Reports chest pain, shortness of breath, Patient's skin is warm and dry. Respiratory: Airway is patent Respiratory effort is even, unlabored. Historical: - Allergies: 13:35 NKA; ap3 - Home Meds: 13:35 Hydrochlorothiazide Oral [Active]; lisinopril Oral [Active]; Bystolic oral [Active]; ap3 - PMHx: 13:35 Hypertension; ap3 - PSHx: 13:35 Appendectomy; ap3 - Immunization history:: Client reports having NOT received the Covid vaccine. - Social history:: Smoking status: Patient reports the use of cigarette tobacco products, smokes 1.5 packs per day. Screenin:36 Abuse screen: Denies threats or abuse. Nutritional screening: No deficits noted. ap3 Tuberculosis screening: No symptoms or risk factors identified. 13:54 Fall Risk None identified. kb3 Assessment: 13:52 General: Appears in no apparent distress. Behavior is calm, cooperative, Received care kb3 of pt from triage. Pt is AAO x4. Reports sudden onset of episodic substernal chest pain, stabbing in nature, 5/10 with accompanying SOB. Pt reports hx of high blood pressure, does not check it at home, but states "I know it is high when I feel hot and flushed and I have been feeling hot since yesterday." Denies fever, N/V, sweating. . 13:54 Pain: Pain: Complains of pain in mid-sternal area Pain does not radiate. Pain currently kb3 is 5 out of 10 on a pain scale. Quality of pain is described as stabbing, Pain began 1 day ago. Is episodic. Vital Signs: 13:33 BP 156 / 100; Pulse 86; Resp 17; Temp 98.4; Pulse Ox 100% ; Weight 124.74 kg; Height 5 ap3 ft. 11 in. (180.34 cm); Pain 5/10; 13:54 BP 158 / 95; Pulse 81; Resp 18; Pulse Ox 100% ; Pain 5/10; kb3 16:30 BP 145 / 95; Pulse 83; Resp 20; Pulse Ox 96% ; Pain 3/10; kb3 13:33 Body Mass Index 38.35 (124.74 kg, 180.34 cm) ap3 ED Course: 13:24 Patient arrived in ED. am2 13:24 Tien Vallejo MD is Private Physician. am2 13:30 Markus Stovall MD is Attending Physician. kdr 13:35 Triage completed. ap3 13:36 Arm band placed on left wrist. ap3 13:37 Patient maintains SpO2 saturation greater than 95% on room air. ap3 13:43 Cristin Escobedo, JOSEPH is Primary Nurse. kb3 13:54 Patient has correct armband on for positive identification. Bed in low position. Call kb3 light in reach. Side rails up X 1. Client placed on continuous cardiac and pulse oximetry monitoring. NIBP monitoring applied. youth nutritional monitor on. 13:54 No provider procedures requiring assistance completed. Inserted saline lock: 20 gauge kb3 in right hand, using aseptic technique. 15:15 XRAY Chest (1 view) In Process Unspecified. EDMS 16:01 Tien Vallejo MD is Referral Physician. kdr 16:01 Finn Godoy MD is Referral Physician. kdr 16:38 IV discontinued, intact, bleeding controlled, No redness/swelling at site. kb3 Administered Medications: No medications were administered Medication: 13:54 VIS not applicable for this client. kb3 Outcome: 16:02 Discharge ordered by . kdr 16:38 Discharged to home ambulatory. kb3 16:38 Condition: stable 16:38 Discharge instructions given to patient, Instructed on discharge instructions, follow up and referral plans. Demonstrated understanding of instructions, follow-up care. 16:38 Patient left the ED. kb3 Signatures: Dispatcher [employer] EDMS Markus Stovall MD MD kdr Gwendolyn Gonzalez Amanda, RN RN ap3 Cristin Escobedo, RN RN kb3 Corrections: (The following items were deleted from the chart) 13:55 13:52 General: Appears in no apparent distress. Behavior is calm, cooperative, Received kb3 care of pt from triage. Pt is AAO x4. Reports sudden onset of episodic substernal chest pain, stabbing in nature, 8/10 with accompanying SOB. Pt reports hx of high blood pressure, does not check it at home, but states "I know it is high when I feel hot and flushed and I have been feeling hot since yesterday." Denies fever, N/V, sweating. . kb3
--- NOTE | 2021-12-03 16:03 | EDPHYS ---
Physician Documentation [facility] Name: Pola Hunter Age: 46 yrs Sex: Male : 1975 Arrival Date: 12/03/2021 Time: 13:24 Bed 9 Private MD: Tien Vallejo T ED Physician Markus Stovall HPI: 12/03 14:14 This 46 yrs old Male presents to ER via Ambulatory with complaints of Chest Pain. kdr 14:14 The patient or guardian reports chest pain that is located primarily in the anterior kdr chest wall, left, Chest pain is located focally has the left sternal border at about the fourth or fifth intercostal space. This is where the pain has been previously on prior presentations to the ED.. Onset: last night. The pain does not radiate. Associated signs and symptoms: Pertinent positives: diaphoresis, nausea, shortness of breath. The chest pain is described as aching, sharp. Duration: The patient or guardian reports multiple episodes, that are intermittent, that wax and wane, with no pattern. Severity of pain: At its worst the pain was mild moderate just prior to arrival, in the emergency department the pain is unchanged. The patient has experienced similar episodes in the past, Patient has been seen here several times this year for the same pain. 14:16 Patient has had similar symptoms off and on since the first of the year. He has been kdr seen by Dr. Patel for the same complaint. He had a cardiac echo several months back without any apparent pathology found. The patient was comfortable in the ED and did not appear to need acute intervention.. Historical: - Allergies: 13:35 NKA; ap3 - Home Meds: 13:35 Hydrochlorothiazide Oral [Active]; lisinopril Oral [Active]; Bystolic oral [Active]; ap3 - PMHx: 13:35 Hypertension; ap3 - PSHx: 13:35 Appendectomy; ap3 - Immunization history:: Client reports having NOT received the Covid vaccine. - Social history:: Smoking status: Patient reports the use of cigarette tobacco products, smokes 1.5 packs per day. ROS: 14:14 Constitutional: Negative for fever, chills, and weight loss, Eyes: Negative for injury, kdr pain, redness, and discharge, ENT: Negative for injury, pain, and discharge, Neck: Negative for injury, pain, and swelling, Respiratory: Negative for shortness of breath, cough, wheezing, and pleuritic chest pain, Abdomen/GI: Negative for abdominal pain, nausea, vomiting, diarrhea, and constipation, Back: Negative for injury and pain, : Negative for injury, bleeding, discharge, and swelling, MS/Extremity: Negative for injury and deformity, Skin: Negative for injury, rash, and discoloration, Neuro: Negative for headache, weakness, numbness, tingling, and seizure activity. Psych: Negative for depression, anxiety, suicide ideation, homicidal ideation, and hallucinations, Allergy/Immunology: Negative for hives, rash, and allergies, Endocrine: Negative for neck swelling, polydipsia, polyuria, polyphagia, and marked weight changes, Hematologic/Lymphatic: Negative for swollen nodes, abnormal bleeding, and unusual bruising. 14:14 Cardiovascular: Positive for chest pain, Negative for edema, orthopnea, palpitations, paroxysmal nocturnal dyspnea, acute changes. Exam: 13:54 ECG was reviewed by the Attending Physician. kdr 14:14 Constitutional: This is a well developed, well nourished patient who is awake, alert, kdr and in no acute distress. Head/Face: Normocephalic, atraumatic. Eyes: Pupils equal round and reactive to light, extra-ocular motions intact. Lids and lashes normal. Conjunctiva and sclera are non-icteric and not injected. Cornea within normal limits. Periorbital areas with no swelling, redness, or edema. Neck: Trachea midline, no thyromegaly or masses palpated, and no cervical lymphadenopathy. Supple, full range of motion without nuchal rigidity, or vertebral point tenderness. No Meningismus. Chest/axilla: Normal chest wall appearance and motion. Nontender with no deformity. No lesions are appreciated. Cardiovascular: Regular rate and rhythm with a normal S1 and S2. No gallops, murmurs, or rubs. Normal PMI, no JVD. No pulse deficits. Respiratory: Lungs have equal breath sounds bilaterally, clear to auscultation and percussion. No rales, rhonchi or wheezes noted. No increased work of breathing, no retractions or nasal flaring. Abdomen/GI: Soft, non-tender, with normal bowel sounds. No distension or tympany. No guarding or rebound. No evidence of tenderness throughout. Back: No spinal tenderness. No costovertebral tenderness. Full range of motion. Skin: Warm, dry with normal turgor. Normal color with no rashes, no lesions, and no evidence of cellulitis. MS/ Extremity: Pulses equal, no cyanosis. Neurovascular intact. Full, normal range of motion. Neuro: Awake and alert, GCS 15, oriented to person, place, time, and situation. Cranial nerves II-XII grossly intact. Motor strength 5/5 in all extremities. Sensory grossly intact. Cerebellar exam normal. Normal gait. Psych: Awake, alert, with orientation to person, place and time. Behavior, mood, and affect are within normal limits. Vital Signs: 13:33 BP 156 / 100; Pulse 86; Resp 17; Temp 98.4; Pulse Ox 100% ; Weight 124.74 kg; Height 5 ap3 ft. 11 in. (180.34 cm); Pain 5/10; 13:54 BP 158 / 95; Pulse 81; Resp 18; Pulse Ox 100% ; Pain 5/10; kb3 16:30 BP 145 / 95; Pulse 83; Resp 20; Pulse Ox 96% ; Pain 3/10; kb3 13:33 Body Mass Index 38.35 (124.74 kg, 180.34 cm) ap3 MDM: 14:14 Data reviewed: vital signs, nurses notes, lab test result(s), radiologic studies. kdr Counseling: I had a detailed discussion with the patient and/or guardian regarding: the historical points, exam findings, and any diagnostic results supporting the discharge/admit diagnosis, lab results, radiology results, the need for outpatient follow up. 16:02 Patient medically screened. [facility] 12/03 14:14 Order name: Basic Metabolic Panel; Complete Time: 15:57 [facility] 12/03 14:14 Order name: CBC with Diff; Complete Time: 15:57 [facility] 12/03 14:14 Order name: NT PRO-BNP; Complete Time: 15:57 [facility] 12/03 14:14 Order name: Troponin HS; Complete Time: 15:57 [facility] 12/03 14:14 Order name: XRAY Chest (1 view); Complete Time: 15:57 [facility] 12/03 14:14 Order name: EKG; Complete Time: 14:14 [facility] 12/03 14:14 Order name: Cardiac monitoring; Complete Time: 14:35 [facility] 12/03 14:14 Order name: EKG - Nurse/Tech; Complete Time: 14:35 kdr 12/03 14:14 Order name: IV Saline Lock; Complete Time: : kdr 12/03 14:14 Order name: Labs collected and sent; Complete Time: 14: kdr 12/03 14:14 Order name: O2 Per Protocol; Complete Time: 14: kdr 12/03 14:14 Order name: O2 Sat Monitoring; Complete Time: :35 kdr EC:54 Rate is 85 beats/min. Rhythm is regular, Sinus Rhythm with Right bundle branch block. kdr QRS [place] is Normal. [place] interval is normal. QRS interval is normal. QT interval is normal. Clinical impression: NSR w/ Non-specific ST/T Changes. Administered Medications: No medications were administered Disposition Summary: 12/03/21 16:02 Discharge Ordered Location: Home kdr Problem: an ongoing problem kdr Symptoms: have improved kdr Condition: Stable kdr Diagnosis - Chest pain, unspecified kdr Followup: kdr - With: Tien Vallejo MD - When: 2 - 3 days - Reason: If symptoms return, Further diagnostic work-up, Recheck today's complaints, Continuance of care, Re-evaluation by your physician Followup: kdr - With: Finn Godoy MD - When: 2 - 3 days - Reason: If symptoms return, Further diagnostic work-up, Recheck today's complaints, Continuance of care, Re-evaluation by your physician Discharge Instructions: - Discharge Summary Sheet kdr - Nonspecific Chest Pain, Adult, [id number] kdr Forms: - Medication Reconciliation Form kdr - Thank You Letter kdr Signatures: Dispatcher [employer] Markus Noonan MD MD kdr Gwendolyn Sanchez, RN RN ap3
[2021-12-03 17:51] VITALS: TEMP 98.4
[2021-12-03 18:03] VITALS: BP 145/95; O2SAT 96
--- NOTE | 2021-12-04 15:13 | EKG ---
Test Date: 2021-12-03 Test Time: 13:44:07 Hat Checker: ALP MEASUREMENT RESULTS: Intervals: Rate: 85 NV: 176 QRSD: 108 QT: 374 QTc: 445 [place]: P: 53 NV: 176 QRS: 73 T: 57 INTERPRETIVE STATEMENTS: Normal sinus rhythm Incomplete right bundle branch block Borderline ECG Compared to ECG 07/11/2021 13:48:55 Sinus tachycardia no longer present Right-axis deviation no longer present Electronically Signed On 12-04-21 15:12:13 CDT by Finn Godoy
== END 2021-12-03 16:38 | disposition home or self-care (01) ==
LOC: ER 13:23
DX: R07.89 Other chest pain (principal); I10 Essential (primary) hypertension; F17.210 Nicotine dependence, cigarettes, uncomplicated
CPT/HCPCS: 36415; 71045; 80048; 83880; 84484; 85025; 93005

== ENCOUNTER 2022-10-06 21:05 | Observation (INO) | payer OTHER, SELFPAY ==
[2022-10-06 22:03] LABS: Absolute Lymphocytes (CBC) 1.5 K/uL (0.7-4.9); Hematocrit 45.3 % (39.6-49.0); Lymphocytes % 17.2 % (15.3-44.8); MCV 95.2 fL (80-100); MPV 10.9 fL (7.6-11.3); RBC Red Blood Cell Count 4.76 M/uL (4.33-5.43)
[2022-10-06 22:21] LABS: Albumin 3.7 g/dL (3.4-5.0); Bilirubin Direct 0.2 mg/dL (0-0.2); Bilirubin Indirect, Calculated 0.5 mg/dL (0.2-0.8); Bilirubin Total 0.7 mg/dL (0.2-1.0); Magnesium 1.9 mg/dL (1.6-2.4); Potassium 3.5 mEq/L (3.5-5.1); Protein, Total 7.5 g/dL (6.4-8.2); Troponin High Sensitivity 10.3 pg/mL (<58.9)
--- NOTE | 2022-10-06 22:47 | RAD REPORT ---
EXAM DESCRIPTION: RADChest Single View10/06/2022 10:14 pm CLINICAL HISTORY: SOB COMPARISON: Chest Single View dated 12/03/2021; Chest Single View dated 07/11/2021; Chest Single View d ated 05/30/2021; Chest Single View dated 04/01/2021 TECHNIQUE: Portable AP view of the chest. FINDINGS: Mild central interstitial prominence, may relate to mild congestion or early edema. The nehemiah ngs are otherwise clear. No pneumothorax or effusion. The cardiomediastinal contours are unremarkabl e. IMPRESSION: Mild central interstitial prominence, may relate to mild congestion or early edema.
[2022-10-06 23:12] LABS: Protime INR 0.95
[2022-10-06] MEDS ORDERED: MORPHINE 4 MG/ML SYR ONE (23:30)
[2022-10-06] MEDS ORDERED: FAMOTIDINE 20 MG/2 ML VIAL IV ONE (23:30)
[2022-10-06] MEDS ORDERED: ASPIRIN 81 MG CHEWABLE TABLET ONE (23:30)
--- NOTE | 2022-10-07 01:06 | EDPHYS ---
Physician Documentation [facility] Name: Pola Hunter Age: 47 yrs Sex: Male : 1975 Arrival Date: 10/06/2022 Time: 21:05 Bed 16 Private MD: ED Physician Rambo Diaz HPI: 10/06 21:45 This 47 yrs old Male presents to ER via Ambulatory with complaints of Chest Pain, cp Shortness Of Breath, Ankle Swelling. 21:45 The patient or guardian reports chest pain that is located primarily in the anterior cp chest wall, left. 21:45 Onset: 3 day(s) ago. The pain does not radiate. Associated signs and symptoms: cp Pertinent positives: lower extremity swelling, shortness of breath, Pertinent negatives: abdominal pain, cough, dizziness, headache, lower extremity pain, near syncope, palpitations, syncope, vomiting. The chest pain is described as a pressure. 21:45 Severity of pain: in the emergency department the pain has improved mildly. cp Historical: - Allergies: 21:15 NKA; as6 - PMHx: 21:15 Hypertension; as6 - PSHx: 21:15 Appendectomy; as6 - Immunization history:: Client reports having NOT received the Covid vaccine. - Social history:: Smoking status: Patient reports the use of cigarette tobacco products, smokes one-half pack cigarettes per day. ROS: 21:50 Constitutional: Negative for body aches, chills, fever, poor PO intake. cp 21:50 Eyes: Negative for injury, pain, redness, and discharge. cp 21:50 ENT: Negative for drainage from ear(s), ear pain, sore throat, difficulty swallowing, difficulty handling secretions. 21:50 Neck: Negative for stiffness, tenderness. 21:50 Cardiovascular: Positive for chest pain, edema, Negative for palpitations. 21:50 Respiratory: Positive for shortness of breath, on exertion. Negative for cough, wheezing. 21:50 Abdomen/GI: Negative for abdominal pain, nausea, vomiting, and diarrhea. 21:50 Back: Negative for pain at rest, pain with movement. 21:50 Neuro: Negative for altered mental status, dizziness, headache, numbness, weakness. 21:50 All other systems are negative. Exam: 21:55 Constitutional: The patient appears in no acute distress, alert, awake, cp non-diaphoretic, non-toxic, well developed, well nourished. 21:55 Head/Face: Normocephalic, atraumatic. cp 21:55 Eyes: Periorbital structures: appear normal, Conjunctiva: normal, no exudate, no injection, Sclera: no appreciated abnormality, Lids and lashes: appear normal, bilaterally. 21:55 ENT: External ear(s): are unremarkable, Nose: is normal, Mouth: Lips: moist, Oral mucosa: pink and intact, moist, Posterior pharynx: is normal, airway is patent, no erythema, no exudate. 21:55 Neck: ROM/movement: is normal, is supple, without pain, no range of motions limitations, no meningismus. 21:55 Chest/axilla: Inspection: normal. 21:55 Cardiovascular: Rate: tachycardic, Rhythm: regular, Edema: ankle edema, that is mild, JVD: is not appreciated. 21:55 Respiratory: the patient does not display signs of respiratory distress, Respirations: normal, no use of accessory muscles, no retractions, labored breathing, is not present, Breath sounds: are clear throughout, no decreased breath sounds, no stridor, no wheezing. 21:55 Abdomen/GI: Inspection: abdomen appears normal, Palpation: abdomen is soft and non-tender, in all quadrants. 21:55 Back: pain, is absent, ROM is normal. 21:55 Neuro: Orientation: to person, place \T\ time. Mentation: is normal, Cerebellar function: is grossly normal, Motor: moves all fours, strength is normal, Sensation: is normal. Vital Signs: 21:11 BP 150 / 97; Pulse 101; Resp 18 S; Temp 98.9(O); Pulse Ox 95% on R/A; Weight 133.81 kg as6 (R); Height 5 ft. 11 in. (R); Pain 07/20; 10/07 00:00 BP 143 / 92; Pulse 77; Resp 11; Pulse Ox 96% ; vc1 01:00 BP 164 / 94; Pulse 75; Resp 19; Pulse Ox 95% on R/A; vc1 02:00 BP 128 / 94; Pulse 68; Resp 11; Pulse Ox 97% ; vc1 03:00 BP 144 / 99; Pulse 59; Resp 18; Pulse Ox 96% ; vc1 06/27 21:11 Body Mass Index 41.14 (133.81 kg, 180.34 cm) as6 10/06 21:11 Pain Scale: Adult as6 MDM: 10/06 21:35 Patient medically screened. dorina 10/07 01:00 The patient was given aspirin in the Emergency Department. cp 01:00 Data reviewed: vital signs, nurses notes, lab test result(s), EKG, radiologic studies, cp CT scan, plain films, ultrasound. Consideration of Admission/Observation Patient was admitted/placed on observation. Management of patient was discussed with the following: Hospitalist: Cely Max NP will admit after discussion. I considered the following discharge prescriptions or medication management in the emergency department Medications were administered in the Emergency Department. See MAR. Care significantly affected by the following chronic conditions: Hypertension, Obesity. Counseling: I had a detailed discussion with the patient and/or guardian regarding: the historical points, exam findings, and any diagnostic results supporting the discharge/admit diagnosis, lab results, radiology results. 10/06 21:40 Order name: Basic Metabolic Panel; Complete Time: 22:50 cp 10/06 22:50 Interpretation: Normal except: GFR 82. 10/06 21:40 Order name: CBC with Diff; Complete Time: 22:50 10/06 21:40 Order name: D-Dimer; Complete Time: 23:23 10/06 21:40 Order name: LFT's; Complete Time: 22:50 10/06 21:40 Order name: Magnesium; Complete Time: 22:50 10/06 21:40 Order name: NT PRO-BNP; Complete Time: 22:50 10/06 22:51 Interpretation: Abnormal: NT PRO-BNP 455. cp 10/06 21:40 Order name: PT-INR; Complete Time: 23:23 cp 10/06 21:40 Order name: Troponin HS; Complete Time: 22:50 10/06 22:51 Interpretation: Troponin HS 10.3; Reviewed. 10/06 21:40 Order name: XRAY Chest (1 view); Complete Time: 22:50 10/06 23:23 Order name: US Extremity Venous W Compression Sukhwinder 10/06 23:24 Order name: CT Chest For PE Angio 10/06 21:40 Order name: EKG; Complete Time: 21:41 10/06 21:40 Order name: Cardiac monitoring; Complete Time: 21:55 cp 10/06 21:40 Order name: EKG - Nurse/Tech; Complete Time: 21:54 cp 10/06 21:40 Order name: IV Saline Lock; Complete Time: 21:54 cp 10/06 21:40 Order name: Labs collected and sent; Complete Time: 21:55 cp 10/06 21:40 Order name: O2 Per Protocol; Complete Time: 21:55 cp 10/06 21:40 Order name: O2 Sat Monitoring; Complete Time: 21:55 cp Administered Medications: 10/06 23:30 Drug: Aspirin PO Chewable Tablet 324 mg Route: PO; cm10 23:31 Drug: Furosemide IVP 20 mg Route: IVP; Site: right antecubital; cm10 23:32 Not Given (Physician Discretion): morphine IVP or IV 2 mg IVP once over 4 mins cp 23:33 Drug: morphine IVP or IV 4 mg Route: IVP; Infused Over: 4 mins; Site: right antecubital;cm10 Disposition Summary: 10/07/22 01:05 Hospitalization Ordered Hospitalization Status: Observation cp Provider: Eri Max cp Location: Telemetry/MedSurg (observation) cp Condition: Stable cp Problem: new cp Symptoms: have improved cp Bed/Room Type: Standard Room Assignment: 420(10/07/22 04:41) cg Diagnosis - Chest pain, unspecified cp - Dyspnea cp Forms: - Medication Reconciliation Form cp - SBAR form cp Signatures: Dispatcher [employer] EDRambo Arciniega MD MD cha Page, Corey, PA PA cp Naty Ghotra RN RN cg Darius Suarez RN RN as6 Alisa Trujillo RN RN cm10 Corrections: (The following items were deleted from the chart) 10/07 04:41 01:05 cp cg 10/08 02:55 10/06 21:45 The patient or guardian reports chest pain that is located primarily in the cp anterior chest wall, cp
--- NOTE | 2022-10-07 01:06 | ER ---
Nurse's Notes [facility] Name: Pola Hunter Age: 47 yrs Sex: Male : 1975 Arrival Date: 10/06/2022 Time: 21:05 Bed 16 Private MD: Diagnosis: Chest pain, unspecified;Dyspnea Presentation: 10/06 21:11 Chief complaint: Patient states: "I have had chest pains for a few days and and been as6 short of breath, I have also noticed my legs have been swelling". Coronavirus screen: At this time, the client does not indicate any symptoms associated with coronavirus-19. Ebola Screen: No symptoms or risks identified at this time. Initial Sepsis Screen: Does the patient meet any 2 criteria? No. Patient's initial sepsis screen is negative. Does the patient have a suspected source of infection? No. Patient's initial sepsis screen is negative. Risk Assessment: Do you want to hurt yourself or someone else? Patient reports no desire to harm self or others. Onset of symptoms was September 30, 2022. 21:11 Method Of Arrival: Ambulatory as6 21:11 Acuity: STEVE 3 as6 Triage Assessment: 21:15 General: Appears in no apparent distress. Behavior is calm, cooperative. Pain: as6 Complains of pain in chest. Cardiovascular: Reports chest pain, shortness of breath. Historical: - Allergies: 21:15 NKA; as6 - PMHx: 21:15 Hypertension; as6 - PSHx: 21:15 Appendectomy; as6 - Immunization history:: Client reports having NOT received the Covid vaccine. - Social history:: Smoking status: Patient reports the use of cigarette tobacco products, smokes one-half pack cigarettes per day. Screenin:07 [facility] ED Fall Risk Assessment (Adult) History of falling in the last 3 months, cm10 including since admission No falls in past 3 months (0 pts) Confusion or Disorientation No (0 pts) Intoxicated or Sedated No (0 pts) Impaired Gait No (0 pts) Mobility Assist Device Used No (0 pt) Altered Elimination No (0 pt) Score/Fall Risk Level 0 - 2 = Low Risk Oriented to surroundings, Maintained a safe environment, Hourly rounding (assess needs \\T\\ fall precautionary measures) done. Abuse screen: Denies threats or abuse. Denies injuries from another. Nutritional screening: No deficits noted. Tuberculosis screening: No symptoms or risk factors identified. Assessment: 22:06 Also complains of shortness of breath. General: Appears in no apparent distress. cm10 uncomfortable, Behavior is calm, cooperative. Pain: Complains of pain in left lateral anterior chest Pain radiates to mid-sternal area. Pain: Pain began suddenly. Neuro: No deficits noted. Level of Consciousness is awake, alert, Oriented to person, place, time, situation. Cardiovascular: No deficits noted. Reports chest pain, shortness of breath, Capillary refill < 3 seconds Rhythm is regular. Respiratory: No deficits noted. Airway is patent Respiratory effort is even, unlabored, Respiratory pattern is regular, symmetrical. Derm: No deficits noted. Skin is intact, Skin is pink, warm \\T\\ dry. 10/07 00:00 Reassessment: Patient and/or family updated on plan of care and expected duration. Pain vc1 level reassessed. Patient is alert, oriented x 3, equal unlabored respirations, skin warm/dry/pink. Assumed care of patient from JOSEPH Cuellar. 01:00 Reassessment: No changes from previously documented assessment. Patient and/or family vc1 updated on plan of care and expected duration. Pain level reassessed. Patient is alert, oriented x 3, equal unlabored respirations, skin warm/dry/pink. 02:00 Reassessment: No changes from previously documented assessment. Patient and/or family vc1 updated on plan of care and expected duration. Pain level reassessed. 03:00 Reassessment: No changes from previously documented assessment. Patient and/or family vc1 updated on plan of care and expected duration. Pain level reassessed. Vital Signs: 10/06 21:11 BP 150 / 97; Pulse 101; Resp 18 S; Temp 98.9(O); Pulse Ox 95% on R/A; Weight 133.81 kg as6 (R); Height 5 ft. 11 in. (R); Pain 07/20; 10/07 00:00 BP 143 / 92; Pulse 77; Resp 11; Pulse Ox 96% ; vc1 01:00 BP 164 / 94; Pulse 75; Resp 19; Pulse Ox 95% on R/A; vc1 02:00 BP 128 / 94; Pulse 68; Resp 11; Pulse Ox 97% ; vc1 03:00 BP 144 / 99; Pulse 59; Resp 18; Pulse Ox 96% ; vc1 10/06 21:11 Body Mass Index 41.14 (133.81 kg, 180.34 cm) as6 10/06 21:11 Pain Scale: Adult as6 ED Course: 10/06 21:09 Patient arrived in ED. ja2 21:15 Triage completed. as6 21:15 Arm band placed on. as6 21:22 Rambo Mcgarry PA is PHCP. cp 21:22 Rambo Diaz MD is Attending Physician. cp 21:30 Inserted saline lock: 20 gauge in right antecubital area, using aseptic technique. as6 Blood collected. 21:34 Alisa Trujillo, RN is Primary Nurse. cm10 21:55 Basic Metabolic Panel Sent. cm10 21:55 CBC with Diff Sent. cm10 21:55 D-Dimer Sent. cm10 21:55 LFT's Sent. cm10 21:55 Magnesium Sent. cm10 21:55 NT PRO-BNP Sent. cm10 21:55 PT-INR Sent. cm10 21:55 Troponin HS Sent. cm10 22:08 Patient has correct armband on for positive identification. Bed in low position. Call cm10 light in reach. Side rails up X 1. Client placed on continuous cardiac and pulse oximetry monitoring. NIBP monitoring applied. 22:08 Patient maintains SpO2 saturation greater than 95% on room air. cm10 22:16 XRAY Chest (1 view) In Process Unspecified. EDMS 23:33 US at bedside. cm10 23:56 US Extremity Venous W Compression Sukhwinder In Process Unspecified. EDMS 10/07 00:21 CT Chest For PE Angio In Process Unspecified. EDMS 01:05 Eri Max PA-C is Hospitalizing Provider. cp 02:12 Christelle Ocampo, RN is Primary Nurse. vc1 04:52 No provider procedures requiring assistance completed. Patient admitted, IV remains in vc1 place. Administered Medications: 10/06 23:30 Drug: Aspirin PO Chewable Tablet 324 mg Route: PO; cm10 23:31 Drug: Furosemide IVP 20 mg Route: IVP; Site: right antecubital; cm10 23:32 Not Given (Physician Discretion): morphine IVP or IV 2 mg IVP once over 4 mins cp 23:33 Drug: morphine IVP or IV 4 mg Route: IVP; Infused Over: 4 mins; Site: right antecubital;cm10 Medication: 22:07 VIS not applicable for this client. cm10 Outcome: 10/07 01:05 Decision to Hospitalize by Provider. cp 04:52 Admitted to Tele accompanied by tech, via wheelchair, room 420, Report called to nahomy Amaral RN 04:52 Condition: good 04:52 Instructed on the need for admit. 05:02 Patient left the ED. Signatures: Dispatcher [employer] EDMS Rambo Mcgarry PA PA cp Alexander, Jessica ja2 Slawson, Ashby, RN RN as6 Christelle Ocampo RN RN vc1 Alisa Trujillo RN RN cm10
--- NOTE | 2022-10-07 04:40 | P.HP ---
Certification for Inpatient Patient admitted to: Observation With expected LOS: <2 Midnights Patient will require the following post-hospital care: None Practitioner: I am a practitioner with admitting privileges, knowledge of patient current condition, hospital course, and medical plan of care. Services: Services provided to patient in accordance with Admission requirements found in Title 42 Section 412.3 of the Code of Federal Regulations Patient History Date of Service: 10/07/22 Reason for admission: Chest Pain History of Present Illness: Mr. Hunter is a 47 year old male with past medical history of hypertension and tobacco abuse who presented to the emergency department with complaints of chest pain. he states that the pain has been going on for a few days now and is associated with shortness of breath and mild swelling in his legs. His workup today was unremarkable- EKG, chest xray, troponin. chest CTA negative for PE, did show bronchial wall thickening, suggestive of bronchitis. BNP slightly elevated at 455. He was given aspirin in the ED. Will admit for observation for ACS rule out. Allergies meperidine HCl [From Demerol] Allergy (Mild, Verified 02/24/12 08:38) Hives/Rash No Known Drug Allergies Allergy (Unverified 07/24/14 07:35) Unknown No Known Allergies Allergy (Uncoded 10/12/17 12:44) Unknown Home Medications: Lisinopril/Hydrochlorothiazide [Lisinopril-Hctz 10-12.5 mg Tab] 1 each PO BEDTIME 10/12/17 - Past Medical/Surgical History Diabetic: No -: Hypertension -: Appendectomy Psychosocial/ Personal History: Patient lives at home alone. - Family History Father -: Heart disease, Other (see notes) Notes: alzheimers Mother -: Heart disease, Stroke - Social History Smoking Status: Current every day smoker Alcohol use: Yes CD- Drugs: No Caffeine use: Yes Place of Residence: Home Review of Systems Respiratory: Shortness of Breath Cardiovascular: Chest Pain, Edema Physical Examination - Vital Signs Temperature: 98.9 F Blood Pressure: 144/99 Pulse: 59 Respirations: 18 Pulse Ox (%): 96 - Physical Exam General: Alert, In no apparent distress HEENT: Atraumatic, EOMI, Sclerae nonicteric Neck: Supple, 2+ carotid pulse no bruit Respiratory: Clear to auscultation bilaterally, Normal air movement Cardiovascular: Regular rate/rhythm, Normal S1 S2 Gastrointestinal: Normal bowel sounds, No tenderness Musculoskeletal: No tenderness Integumentary: No rashes Neurological: Normal speech, Normal affect - Studies Laboratory Data (last 24 hrs) 10/06/22 21:54: PT 10.5, INR 0.95 10/06/22 21:54: WBC 8.50, Hgb 15.0, Hct 45.3, Plt Count 148 L 10/06/22 21:54: Sodium 138, Potassium 3.5, BUN 14, Creatinine 1.12, Glucose 98, Magnesium 1.9, Total Bilirubin 0.7, AST 33, ALT 66 H, Alkaline Phosphatase 74 Assessment and Plan - Problems (Diagnosis) (1) Chest pain Current Visit: No Status: Acute Qualifiers: Chest pain type: unspecified Qualified Code(s): R07.9 - Chest pain, unspecified (2) HTN (hypertension) Current Visit: No Status: Chronic Qualifiers: Hypertension type: primary hypertension Qualified Code(s): I10 - Essential (primary) hypertension (3) Tobacco abuse Current Visit: No Status: Chronic - Plan Patient is admitted for observation for ACS rule out. Initial troponin negative. Trend. Check lipid panel and TSH. Obtain echocardiogram. Consult cardiology. Monitor on telemetry. Aspirin and atorvastatin daily. Tobacco cessation advised. Nicoderm patch provided. Monitor and replete electrolyte per protocol. Reconcile and continue home medications. Lovenox for VTE prophylaxis. Full code. Discharge Plan: Home Plan to discharge in: 24 Hours - Advance Directives Does patient have a Living Will: No Does patient have a Durable POA for Healthcare: No - Code Status/Comfort Care Code Status Assessed: Yes Code Status: Full Code Physician Review: Patient Assessed, Agree with Above Assessment and Plan Critical Care: No Time Spent Managing Pts Care (In Minutes): 50
[2022-10-07] MEDS ORDERED: ACETAMINOPHEN 500 MG TAB PO PRN (05:11)
[2022-10-07] MEDS ORDERED: ALBUTEROL 2.5 MG/3 ML NEB SOL NEB PRN ×2 (05:11→14:00)
[2022-10-07] MEDS ORDERED: ONDANSETRON 4 MG/2 ML VIAL IV PRN (05:11)
[2022-10-07] MEDS ORDERED: MORPHINE 2 MG/ML SYR IV PRN (05:23)
[2022-10-07 07:55] LABS: Thyroid Stimulating Hormone 2.89 uIU/mL (0.358-3.740); Troponin High Sensitivity 9.2 pg/mL (<58.9)
[2022-10-07] MEDS: ENOXAPARIN 40 MG/0.4 ML SQ SCH (08:11)
[2022-10-07] MEDS: ASPIRIN EC 81 MG TAB PO SCH (08:11)
--- NOTE | 2022-10-07 10:38 | RAD REPORT ---
EXAM DESCRIPTION: US - Extrem Venous W Compress Sukhwinder - 10/06/2022 11:56 pm CLINICAL HISTORY: 47 years, Male, SWELLING COMPARISON: None. FINDINGS: Grayscale imaging as well as spectral and color Doppler interrogation of the deep venous s ystem of bilateral lower extremity was performed with visualization from the common femoral veins to the popliteal veins and posterior tibial vein. There is normal compressibility, augmentation and flow with no visualized thrombus. No focal fluid collection is identified. IMPRESSION: No bilateral lower extremity DVT. Electronically signed by: Jonas Anderson DO 10/07/2022 12:21 AM CDT Due to temporary technical issues with the PACS/Fluency reporting system, reports are being signed by the in house radiologist without review as a courtesy to ensure prompt reporting. The interpreting r adiologist is fully responsible for the content of the report.
--- NOTE | 2022-10-07 10:58 | RAD REPORT ---
EXAM DESCRIPTION: CT - Chest For Pe Angio - 10/07/2022 2:35 am CLINICAL HISTORY: Chest pain;SOB COMPARISON: 07/11/2021 TECHNIQUE: CTA of the chest obtained following the administration of IV contrast. 3-D/MIP reformatte d images of the chest available for evaluation. This exam was performed according to our departmental dose-optimization program, which includes automated exposure control, adjustment of the mA and/or kV according to patient size and/or use of iterative reconstruction technique. FINDINGS: Chest: Pulmonary arteries: Contrast bolus is adequate. No visualized pulmonary embolism. Thyroid gland: Not visualized. Great Vessels: Arch origin of the left vertebral artery. Thoracic Aorta: No aneurysm. No visualized dissection. Heart: No pericardial effusion. Trace coronary artery calcifications. Lymph Nodes: No enlarged mediastinal, hilar, or axillary lymph nodes identified. Esophagus: No abnormalities of the esophagus identified. Other: No additional findings. Lungs: Stable 3 to 4 mm right lower lobe nodule (series 403 image 69). This is most suggestive of triston ign process given small size and stability. No airspace consolidation. Pleura: No pleural effusion or pneumothorax. Trachea/Airways: Bilateral bronchial wall thickening. Central airways are patent. Bones: No destructive osseous lesions. Upper Abdomen: Limited images of the upper abdomen demonstrate no acute abnormality. IMPRESSION: 1. No visualized pulmonary embolism. 2. Bronchial wall thickening, suggestive of bronchitis. Electronically signed by: Brigid Hopkins MD 10/07/2022 12:55 AM CDT Due to temporary technical issues with the PACS/Fluency reporting system, reports are being signed by the in house radiologist without review as a courtesy to ensure prompt reporting. The interpreting r adiologist is fully responsible for the content of the report.
[2022-10-07] MEDS ORDERED: NITROGLYCERIN 0.4 MG/TAB SL ONE (12:48)
--- NOTE | 2022-10-07 18:09 | EKG ---
Test Date: 2022-10-06 Test Time: 21:21:26 Inventory Control Specialist: MEASUREMENT RESULTS: Intervals: Rate: 99 HI: 182 QRSD: 112 QT: 364 QTc: 467 [place]: P: 52 HI: 182 QRS: 55 T: 50 INTERPRETIVE STATEMENTS: Normal sinus rhythm Normal ECG Compared to ECG 12/03/2021 13:44:07 Incomplete right bundle-branch block no longer present Electronically Signed On 10-07-22 18:08:33 CDT by Finn Godoy
--- NOTE | 2022-10-07 19:07 | CON ---
Date of Consultation: 10/07/2022 Reason For Consultation: Chest pain. History Of Present Illness: A 47-year-old male with history of hypertension, presented with chest pa in that has been going on for few days now along with shortness of breath on exertion. CTA of the nehemiah ngs was negative and was admitted for observation. Past Medical History: Hypertension. Medications: Refer to reconciliation sheet for detailed list. Allergies: MEPERIDINE. Social History: He is an active smoker, a pack per day. Does not drink or use any drugs. Review of Systems: All systems reviewed and they were negative except what mentioned in HPI. Physical Examination: Vital Signs: Reviewed. Head and Neck: Pupils are equal, reactive to light. Intact eye movements. No JVD. No cervical lym phadenopathy. Neck is supple. Thyroid is not enlarged. Lungs: Clear to auscultation bilaterally. No rhonchi, wheezing, or crackles. No accessory muscle u se. Abdomen: Soft, nontender. Bowel sounds positive. No organomegaly. No masses or hernia. No rigidi ty or rebound. Extremities: No edema, clubbing, or cyanosis. Intact pulses. Skin: No rash. Neurologic: Alert, awake, oriented x3. No acute focal deficits appreciated. Investigations: Troponins were negative x2. BUN 14, creatinine 1.1. Hemoglobin is 15. Assessment And Recommendations: Chest pain, some typical features. Cardiac enzymes are negative. O btain exercise nuclear stress test tomorrow and plan accordingly. SR/MODL Voice ID: [id number] Report ID: [id number]
--- NOTE | 2022-10-07 19:15 | P.PN ---
Date of Service: 10/07/22 Patient seen and examined. He is complaining of intermittent left-sided anterior chest pain. Troponin x2 negative. Echocardiogram result is pending. Patient seen and evaluated by cardiology recommend stress test in a.m.
[2022-10-07] MEDS ORDERED: ATORVASTATIN 40 MG TAB PO SCH (21:00)
[2022-10-07 22:28] VITALS: O2SAT 97
[2022-10-08 06:10] VITALS: BMI 41.5
--- NOTE | 2022-10-08 06:47 | ECHO ---
HEIGHT: 5 ft 11 in WEIGHT: 298 lb 4.8 oz DATE OF STUDY: 10/07/[address]: Eri Max 2-DIMENSIONAL: YES M.MODE: YES DOPPLER: YES COLOR FLOW: YES TDS: YES PORTABLE: YES DEFINITY: BUBBLE STUDY: DIAGNOSIS: CHEST PAIN, SHORTNESS OF BREATH CARDIAC HISTORY: CATHERIZATION: NO SURGERY: NO PROSTHETIC VALVE: NO PACEMAKER: NO MEASUREMENTS (cm) DIASTOLIC (NORMALS) SYSTOLIC (NORMALS) IVSd 0.9 (0.6-1.2) LA Diam (1.9-4.0) LVEF 77% LVIDd 5.1 (3.5-5.7) LVIDs 2.8 (2.0-3.5) %FS 46% LVPWd 1.1 (0.6-1.2) Ao Diam 3.2 (2.0-3.7) 2 DIMENSIONAL ASSESSMENT: RIGHT ATRIUM: NORMAL LEFT ATRIUM: NORMAL RIGHT VENTRICLE: NORMAL LEFT VENTRICLE: NORMAL TRICUSPID VALVE: NORMAL MITRAL VALVE: MILD MITRAL REGURGITATION PULMONIC VALVE: NORMAL AORTIC VALVE: NORMAL PERICARDIAL EFFUSION: NONE AORTIC ROOT: NORMAL LEFT VENTRICULAR WALL MOTION: NORMAL DOPPLER/COLOR FLOW: MILD MITRAL REGURGITATION COMMENTS: 1. NORMAL LEFT VENTRICULAR EJECTION FRACTION 60-65% 2. NORMAL WALL MOTION 3. NORMAL DIASTOLIC FUNCTION 4. MILD MITRAL REGURGITATION TECHNOLOGIST: KYLE KELLY
[2022-10-08] MEDS ORDERED: REGADENOSON 0.4 MG/5 ML SYR IV ONE (07:41)
[2022-10-08] MEDS: ASPIRIN EC 81 MG TAB PO SCH (07:45)
[2022-10-08] MEDS: ENOXAPARIN 40 MG/0.4 ML SQ SCH (07:45)
--- NOTE | 2022-10-08 11:27 | RAD REPORT ---
EXAM DESCRIPTION: NM - Rest Stress Cardiac Imaging - 10/08/2022 11:18 am CLINICAL HISTORY: CP Chest pain. COMPARISON: <Comparisons> TECHNIQUE: The patient was administered approximately 10mCi of Tc 99m Sestamibi prior to resting SPE CT imaging of the heart. The patient was then administered approximately 30 mCi of Tc 99m Sestamibi f ollowing exercise or pharmacologic stress. Multiplanar SPECT images were reviewed. FINDINGS: No stress induced ischemic defect is seen to suggest stress induced ischemia. No fixed def ect is seen to suggest hibernating myocardium or scarred myocardium. The end diastolic volume is 100 ml, the end systolic volume is 34 ml, and the ejection fraction is 66 %. IMPRESSION: No stress induced ischemia.
[2022-10-08 12:20] VITALS: BP 129/80; TEMP 97.6
--- NOTE | 2022-10-08 13:38 | P.DS ---
Admission Date: 10/07/22 Discharge Date: 10/08/22 Reason for Admission: Chest Pain - Problems (1) Chest pain Current Visit: No Status: Acute Qualifiers: Chest pain type: unspecified Qualified Code(s): R07.9 - Chest pain, unspecified (2) HTN (hypertension) Current Visit: No Status: Chronic Qualifiers: Hypertension type: primary hypertension Qualified Code(s): I10 - Essential (primary) hypertension (3) Tobacco abuse Current Visit: No Status: Chronic (4) Morbid obesity Current Visit: Yes Status: Acute (5) Hypertriglyceridemia Current Visit: Yes Status: Acute Brief History of Present Illness: Mr. Hunter is a 47 year old male with past medical history of hypertension and tobacco abuse who presented to the emergency department with complaints of chest pain. he states that the pain has been going on for a few days now and is associated with shortness of breath and mild swelling in his legs. His workup today was unremarkable- EKG, chest xray, troponin. chest CTA negative for PE, did show bronchial wall thickening, suggestive of bronchitis. BNP slightly elevated at 455. He was given aspirin in the ED. Will admit for observation for ACS rule out. Hospital Course: Patient placed under observation on the medical floor. Troponin trended negative. Patient was seen and evaluated by cardiology who recommended nuclear stress test. Nuclear stress test did not show any stress-induced ischemia or fixed defect, basically negative. ACS ruled out. Patient noted to have mild hypertriglyceridemia. Low-fat low-cholesterol diet advised. Patient is deemed stable for discharge per cardiology. Vital Signs/Physical Exam: Temp Pulse Resp BP Pulse Ox 97.6 F 92 H 20 129/80 97 10/08/22 12:00 10/08/22 12:00 10/08/22 12:10/08/22 12:10/08/22 12:00 General: Alert, In no apparent distress, Oriented x3 HEENT: Mucous membr. moist/pink Neck: JVD not distended Respiratory: Clear to auscultation bilaterally, Normal air movement Cardiovascular: No edema, Regular rate/rhythm, Normal S1 S2 Gastrointestinal: Soft and benign, Non-distended, No tenderness Musculoskeletal: No swelling Integumentary: No rashes, No cyanosis Neurological: Normal strength at 5/5 x4 extr Laboratory Data at Discharge: WBC 8.50 thou/uL (4.3-10.9) 10/06/22 21:54 Hgb 15.0 g/dL (13.6-17.9) 10/06/22 21:54 Hct 45.3 % (39.6-49.0) 10/06/22 21:54 Plt Count 148 thou/uL (152-406) L 10/06/22 21:54 PT 10.5 SECONDS (9.5-12.5) 10/06/22 21:54 INR 0.95 10/06/22 21:54 Sodium 138 mEq/L (136-145) 10/06/22 21:54 Potassium 3.5 mEq/L (3.5-5.1) 10/06/22 21:54 BUN 14 mg/dL (7-18) 10/06/22 21:54 Creatinine 1.12 mg/dL (0.70-1.30) 10/06/22 21:54 Glucose 98 mg/dL (74-106) 10/06/22 21:54 Magnesium 1.9 mg/dL (1.6-2.4) 10/06/22 21:54 Total Bilirubin 0.7 mg/dL (0.2-1.0) 10/06/22 21:54 AST 33 U/L (15-37) 10/06/22 21:54 ALT 66 U/L (16-61) H 10/06/22 21:54 Alkaline Phosphatase 74 U/L (45-117) 10/06/22 21:54 Triglycerides 179 mg/dL (<150) H 10/07/22 07:10 Cholesterol 160 mg/dL (<200) 10/07/22 07:10 HDL Cholesterol 37 mg/dL (40-60) L 10/07/22 07:10 Cholesterol/HDL Ratio 4.32 10/07/22 07:10 Home Medications: Lisinopril/Hydrochlorothiazide [Lisinopril-Hctz 10-12.5 mg Tab] 1 each PO BEDTIME 10/12/17 Aspirin [Aspirin EC 81 MG] 81 mg PO DAILY #30 tab 10/08/22 New Medications: Aspirin [Aspirin EC 81 MG] 81 mg PO DAILY #30 tab Physician Discharge Instructions: Low-fat, low-cholesterol diet. Diet: AHA Activity: Ad luli Followup: Tien Vallejo MD [Primary Care Provider] - Time spent managing pt's care (in minutes): 28
--- NOTE | 2022-10-09 07:51 | TREADPHA ---
DX: CHEST PAIN Date of Study: 10/08/2022 Ht: 5' 11 " Wt: 298 lb 4.8 oz Consulting Physician: ISRAEL MEDICATIONS: TYLENOL, PROVENTIL, ASPIRIN, LIPITOR, LOVENOX, MORPHINE, ZOFRAN HISTORY: 47 YEAR OLD MALE WITH HISTORY OF HYPERTENSION, HYPERLIPIDEMIA. DENIES ALCOHOL USE, REPORTS HE SMOKES HALF PACK PER DAY GREATER THAN TEN YEARS AND USED MARIJUANA IN THE PAST. PHYSICIAL EXAMINATION: RESTING B.P.: 151/91 RESTING H.R.: 77 RESTING EKG: NORMAL SINUS RHYTHM, RIGHT BUNDLE BRANCH BLOCK PROTOCOL: PHARMACOLOGIC EXERCISE TIME: 3:30 B.P. AT PEAK STRESS: 159/99 IMPRESSION: LEXISCAN INJECTED, CARDIOLITE GIVEN PER PROTOCOL, SEE NUCLEAR MEDICINE REPORT. NO SUPRAVENTRICULAR TACHCARDIA, PREMATURE ATRIAL COMPLEXES, PREMATURE VENTRICULAR COMPLEXES NOTED. PATIENT DENIES CHEST PAIN. NO ELECTROCARDIOGRAM CHANGES OF ISCHEMIA WITH LEXISCAN.
== END 2022-10-08 14:13 | disposition home or self-care (01) ==
LOC: ER 21:05 → ERHOLD 10-07 04:33 → 4TH 10-07 04:50
PROVIDERS: ADMIT Internal Medicine; ATTEND Internal Medicine
DX: R07.9 Chest pain, unspecified (principal); I10 Essential (primary) hypertension; Z87.891 Personal history of nicotine dependence; Z88.6 Allergy status to analgesic agent; Z82.49 Family history of ischemic heart disease and other diseases of the circulatory system; E66.01 Morbid (severe) obesity due to excess calories; Z68.41 Body mass index [BMI] 40.0-44.9, adult; E78.1 Pure hyperglyceridemia
CPT/HCPCS: 36415; 71045; 71275; 78452; 80048; 80061; 80076; 83735; 83880; 84443; 84484; 85025; 85379; 85610; 93005; 93017; 93306; 93970; 96374; 96375; 99285; A9500; G0378; J1650; J2270; J2785; Q9967